=== PATIENT | female | born 1945 | race Caucasian/White ===

== ENCOUNTER 2024-03-10 09:36 | Emergency (ER) | payer MEDICARE, SELFPAY ==
[2024-03-10 09:47] VITALS: BP 134/74
--- NOTE | 2024-03-10 11:23 | ED.GENMED ---
History of Present Illness
General
Chief Complaint: Change in Mental Status
Source: family
Time Seen by Provider: 03/10/24 11:07
History of Present Illness
History of Present Illness:
78-year-old female with past medical history of hypertension, hyperlipidemia and dementia presenting to the ER with family after they were at primary care provider yesterday for evaluation as patient has been seemingly a little bit more confused
than baseline, wandering around [place] where patient and live together. A few days ago the patient had to be found wandering around the facility as she often likes to walk but reportedly got lost. Patient herself has no complaints
at this time. Patient's states that he has noticed a slightly stronger odor of urine over the last week or so. Patient was unable to provide a urinary specimen at the primary care provider yesterday. No other concerns at this time.
Past History
Past History
ED Past Medical History: HTN, Hypercholesterolemia and Other (Dementia)
ED Past Surgical History: None
Social History
Tobacco: Non-smoker
Alcohol: None
Drug: None
Personal:
Living: with family
Review of Systems
Review of Systems
All Other Systems: ROS reviewed and negative except as documented in HPI and ROS
Phy Exam
Physical Exam
Physical Exam:
GENERAL: Alert , in no apparent distress, tearful
Head: Normocephalic atraumatic
EYE: pupils equal and reactive, 3 mm bilateral
NECK: Supple
ENT: o/p clr, mmm.
CARDIAC: Regular rate and rhythm .
LUNGS: Clear breath sounds bilaterally, no acute respiratory distress, no wheezes/rales/rhonchi
ABDOMEN: Soft, without focal tenderness, no r/g, no cvat
NEUROLOGICAL: Alert and oriented to self but not place or time, follows commands appropriately
SKIN: Warm and dry, skin intact.
MUSCULOSKELETAL: well perfused.
PSYCH: Normal and appropriate interaction.
Scores
Heart Failure Risk
Heart Failure Risk Score: Not Applicable
Heart Score for Chest Pain Patients
STEMI patient?: Not applicable
Withdrawal Assessment of Alcohol
Withdrawal Assessment Completed?: Not applicable
Course
Orders/Labs/Results
Orders:
Orders
03/10/24 11:20
Complete Blood Count/With Diff Urgent
Comprehensive Metabolic Panel Urgent
Urinalysis Reflex To Culture Urgent
Date Specimen was Collected: 03/10/24
Time Specimen was Collected: 11:17
03/10/24 11:32
0.9% Sodium Chloride 500 ml [Nss] 500 ml IV BOLUS
03/10/24 11:48
Potassium Chloride 10% Elixir [KCl Elixir] 40 meq PO NOW STA
Abnormal Lab Results
03/10/24
11:20
Absolute Monos (auto) 0.9 H 10^3/uL
(0.1-0.6)
Lymphocytes % 16.9 L %
(20.5-51.1)
Monocytes % 10.9 H %
(1.7-9.3)
Potassium 2.9 L mmol/L
(3.5-5.1)
BUN 18 H mg/dl
(7-17)
Glucose 121 H mg/dl
(70-99)
Total Bilirubin 1.9 H mg/dl
(0.2-1.3)
03/10/24 11:20
03/10/24 11:20
Vital Signs
Initial and Last Documented VS:
Initial Vital Signs
Temp Pulse BP Pulse Ox
99.2 F 94 134/74 98
03/10/24 09:47 03/10/24 09:47 03/10/24 09:47 03/10/24 09:47
Last Documented Vital Signs
Temp Pulse Resp BP Pulse Ox
99.2 F 69 16 129/59 98
03/10/24 09:47 03/10/24 11:24 03/10/24 11:24 03/10/24 11:24 03/10/24 11:24
MDM/Problems Addressed
Differential Diagnosis Includes:
Exacerbation of patient's dementia, infectious source such as UTI, less concern for an electrolyte disturbance
MDM/Problems Addressed:
78-year-old female presenting to the emergency department for evaluation of reported increased confusion over the last week or so. Saw primary care provider yesterday but was unable to get a urinary specimen. Patient appears to be at her relative
baseline today per family. She is hemodynamically stable and in no acute distress. Will check labs and urine. Anticipate discharge home with continued outpatient management.
Chronic conditions affecting care: Neurological disorder (Dementia)
Acute Exacerbation and/or Progression of Chronic Illness: Neurological disorder (Dementia)
*Pulse Oximetry
Patient hypoxic: no
*Ch[employer]rick Interpretation
Rate: normal
Rhythm: sinus
*Critical Care Note
Total Time (30-74mins, 75-104mins- exclusive of procedures): Not Applicable
Patient Management
Escalation/DeEscalation of care consider admission/obs:
Patient's lab workup is unremarkable. She remains hemodynamically stable. Ambulatory with steady gait. Stable for discharge home and patient follow-up with primary care provider
ED Attending Note
-
Portions of this chart may have been created with voice recognition software.� Occasional wrong word or��sound alike� substitutions may have occurred due to the inherent limitations of voice recognition software.
Discharge Plan
Departure
Patient Disposition: Home (Routine Discharge)
Date of Disposition: 03/10/24
Time of Disposition: 12:24
Patient with high blood pressure during this ER visit?: No
Discharge Problem:
Dementia
Instructions: Dementia (DC)
Referrals:
Rey Quezada MD [Family Provider] -
Interventions
Interventions:
*Risk Screen - Suicide Last Done: 03/10/24 11:24
*General Assessment Last Done: 03/10/24 09:54
*Neglect/Abuse Screening Last Done: 03/10/24 11:24
ED- Fall Risk Assessment Last Done: 03/10/24 11:24
*ED COVID-19 Vaccine History Last Done: 03/10/24 09:54
*Nursing Disposition Last Done: 03/10/24 12:47
ED- Pulmonary Assessment Last Done: 03/10/24 12:47
ED-Psychological Assessment Last Done: 03/10/24 12:48
ED- Neurological Assessment Last Done: 03/10/24 11:24
ED- Cardiac Assessment Last Done: 03/10/24 12:47
Discharge Date and Time
Discharge Date/Time: 03/10/24 12:47
Print Language: NAURUAN
[2024-03-10 11:24] VITALS: BP 129/59; BMI 24.9
[2024-03-10] MEDS: NSS 500 IV (11:25)
[2024-03-10 11:37] LABS: % Basophils 0.4 % (0-2); % Eosinophils 2.2 % (0-6); % Immature Granulocytes 0.5 % (0-0.5); % Lymphocytes 16.9 % (20.5-51.1); % Monocytes 10.9 % (1.7-9.3); % Neutrophils 69.1 % (42.2-75.2); Absolute Eosinophils 0.2 10^3/uL (0-0.7); Absolute Lymphocytes 1.4 10^3/uL (1.2-3.4); Absolute Monocytes 0.9 10^3/uL (0.1-0.6); Absolute Neutrophils 5.6 10^3/uL (1.4-6.5); Hematocrit 40.6 % (37.0-47.0); Hemoglobin 14.3 g/dL (12.0-16.0); Mean Corp Hgb Conc. 35.2 g/dL (33.0-37.0); Mean Corpuscular Volume 85.3 fL (81.0-99.0); Mean Platelet Volume 10.2 fL (7.4-10.4); Nucleated Red Blood Cells % 0 %; Platelet Count 266 10^3/uL (130-400); Red Blood Cell Count 4.76 10^6/uL (4.20-5.40); Red Cell Dist. Width 13.1 % (11.5-14.5); White Blood Cell Count 8.1 10^3/uL (4.8-10.8)
[2024-03-10 11:41] LABS: ALT (SGPT) 24 U/L (0-35); AST (SGOT) 33 U/L (14-36); Albumin 4.6 g/dl (3.5-5.0); Alkaline Phosphatase 73 U/L (38-126); Blood Urea Nitrogen 18 mg/dl (7-17); Calcium 9.9 mg/dl (8.4-10.2); Carbon Dioxide 27 mmol/L (22-30); Chloride 99 mmol/L (98-107); Estimated Creatinine Clearance 57 ml/min; Glucose 121 mg/dl (70-99); Potassium 2.9 mmol/L (3.5-5.1); Sodium 136 mmol/L (135-145); Total Bilirubin 1.9 mg/dl (0.2-1.3); Total Protein 7.3 g/dl (6.3-8.2); eGFR > 60.00
[2024-03-10 11:46] LABS: Urine Albumin Negative (Neg - Trace); Urine Bilirubin Negative (Negative); Urine Character Clear (Clear); Urine Color Yellow; Urine Glucose Negative (Negative); Urine Ketone Negative (Negative); Urine Leukocyte Negative (Negative); Urine Nitrite Negative (Negative); Urine Occult Blood Negative (Negative); Urine Urobilinogen Negative (Neg - 1+)
[2024-03-10] MEDS: KCL ELIXIR 40 MEQ PO (12:07)
== END 2024-03-10 12:47 | disposition home or self-care (01) ==
LOC: EMR 09:36
PROVIDERS: Physician Assistant Medical; EMERGENCY PHYSICIAN Student in an Organized Health Care Education/Training Program; FAMILY PHYSICIAN Family Medicine
DX: F03.90 Unspecified dementia, unspecified severity, without behavioral disturbance, psychotic disturbance, mood disturbance, and anxiety (principal); I10 Essential (primary) hypertension; E78.5 Hyperlipidemia, unspecified
CPT/HCPCS: 99284; 96360; 80053; 81003; 85025

== ENCOUNTER → 2024-05-17 13:21 | Outpatient (REF) | payer MEDICARE, SELFPAY | LOC: RAD 13:21 | PROVIDERS: ATTENDING PHYSICIAN Family Medicine | DX: R79.89 Other specified abnormal findings of blood chemistry (principal) | CPT/HCPCS: 76700 ==

== ENCOUNTER 2024-05-18 14:46 | Inpatient (IN) | payer MEDICARE, SELFPAY ==
[2024-05-18] VITALS (8 sets, daily range): BP systolic 110–146; BP diastolic 55–87; BMI 22.4
[2024-05-18 10:38] LABS: Hematocrit 42.3 % (37.0-47.0); Hemoglobin 14.8 g/dL (12.0-16.0); Mean Corpuscular Hgb 30.1 pg (27.0-31.0); Mean Corpuscular Volume 86.2 fL (81.0-99.0); Mean Platelet Volume 11.1 fL (7.4-10.4); Platelet Count 216 10^3/uL (130-400); Red Blood Cell Count 4.91 10^6/uL (4.20-5.40); Red Cell Dist. Width 13.9 % (11.5-14.5); White Blood Cell Count 7.1 10^3/uL (4.8-10.8)
[2024-05-18 10:43] LABS: INR 1.17; PT 14.8 Sec (11.4-14.6)
[2024-05-18 10:44] LABS: APTT 31.9 Sec (23.4-35.0)
[2024-05-18 10:48] LABS: ALT (SGPT) 145 U/L (0-35); AST (SGOT) 230 U/L (14-36); Albumin 4.6 g/dl (3.5-5.0); Alkaline Phosphatase 541 U/L (38-126); Blood Urea Nitrogen 30 mg/dl (7-17); Calcium 10.1 mg/dl (8.4-10.2); Carbon Dioxide 21 mmol/L (22-30); Chloride 97 mmol/L (98-107); Glucose 101 mg/dl (70-99); Lipase 379 U/L (23-300); Potassium 3.7 mmol/L (3.5-5.1); Sodium 140 mmol/L (135-145); Total Bilirubin 5.1 mg/dl (0.2-1.3); Total Protein 8.2 g/dl (6.3-8.2); eGFR 42.35
[2024-05-18 10:56] LABS: Absolute Neutrophils -Man Diff 4.7 10^3/uL (1.4-6.5); Band Neutrophils 0 % (0-3); Eosinophils 3 % (0-6); Lymphocytes 11 % (20-51); Monocytes 19 % (2-9); Platelets Checked Yes; Segmented Neutrophils 67 % (42-75)
[2024-05-18 10:57] LABS: Normal RBC Morphology Yes; Total Cells Counted 100
--- NOTE | 2024-05-18 12:03 | ED.GENMED ---
History of Present Illness
General
Chief Complaint: Abnormal Lab Value
Source: patient
Exam Limitations: none
Time Seen by Provider: 05/18/24 09:46
Nursing documentation reviewed up to this point in time: agreed with
History of Present Illness
History of Present Illness:
78 Y/O f WITH H/O HTN, HLD, dementia
here after abnormal US from [facility] ordered by PCP after routine labs showed tranaminitis and hyyperbilirubinemia
pt ahs dementia an dis poor history
and daughter say that she has had some dec in appetite and energy the past few months
she has not had any significant changes to her mental status
they did not appreciate her to be jaundice
denies fever/chills, vomiting, abdominal pain, diarrhea, black stool, cp, sob
had outpatient US showing concerns for pancreatic mass causing intrahepatic ductal dilitation
sent here for w/u
Past History
Past History
ED Past Medical History: HTN, Hypercholesterolemia and Other (Dementia)
ED Past Surgical History: None
Social History
Tobacco: Non-smoker
Alcohol: None
Drug: None
Personal:
Living: with family
Review of Systems
Review of Systems
Allergies reviewed?: Yes
All Other Systems: Not applicable
Phy Exam
Physical Exam
Physical Exam:
GENERAL: Alert , in no apparent distress
EYE: pupils equal and reactive , icteric sclera
NECK: Supple
ENT: o/p clr, mmm.
CARDIAC: Regular rate and rhythm .
LUNGS: Clear breath sounds bilaterally, no acute respiratory distress, no wheezes/rales/rhonchi
ABDOMEN: Soft, without focal tenderness, no r/g, no cvat, normal bowel sounds
NEUROLOGICAL: Alert and oriented x 1 detail, some dementia no focal neuro deficits
SKIN: Warm and dry, skin intact.
MUSCULOSKELETAL: No edema, well perfused. neg dustin's sign
PSYCH: Normal and appropriate interaction.
Course
Orders/Labs/Results
Orders:
Orders
05/18/24 Breakfast
Cholesterol Lowering
At Your Request: Non-Participating
Does patient need a safe tray?: No
Cholesterol Lowering: Sodium, 2 Gram
05/18/24 10:11
Complete Blood Count/With Diff Urgent
Comprehensive Metabolic Panel Urgent
Lipase Urgent
Manual Differential Urgent
PTT Urgent
Prothrombin Time Urgent
05/18/24 14:19
Admit/Transfer Patient As Directed
Co-Sign Provider:
Level of Care: Inpatient admission
Assign to:: Medical/Surgical
Physician / Group: emmie
Diagnosis: pancreatic mass
Reason for Hospitalization: pancratic mass
Expected length of stay greater than two midnights?: Yes
ELOS- Estimated Length of Stay in days: 3
I certify the patient meets the requirements for IP care: Yes
PRN Pain Medication Management As Directed
May give lesser potent ordered pain med per pt: Yes
preference::
Protocol:: Medication orders for pain may be administered in a
manner that supports deferring to patient preference
when the pt is:
- Requesting an ordered lesser potent pain medication.
Least to most potent pain medications are defined
as: acetaminophen < NSAID < tramadol < opioids
(morphine, oxycodone, hydromorphone).
- Requesting a lesser dose of the same medication IF
ORDERED.
- Requesting a less intrusive route of administration
if both routes are prescribed by the provider (PO <
IV).
05/18/24 14:21
Code Status As Directed
Resuscitation Status: Full Code
05/18/24 16:27
0.9% Sodium Chloride 1000 ml [Nss] 1,000 ml IV 80 mls/hr
Bisacodyl [Dulcolax] 10 mg RECTAL [id number] PRN
Docusate W/Senna [Senokot-S] 1 tablet PO BIDPRN PRN
Lorazepam [Ativan] 0.5 mg PO HSPRN PRN
Polyethylene Glycol Powder [Miralax] 17 grams PO DAILYPRN PRN
05/18/24 16:27
GASTROINTESTINAL CONSULT Routine
Consulting Provider: Aron Ramon
Was physician already notified: Yes
Activity As Directed
Activity Level: As Tolerated
Vital Signs As Directed
Frequency: Per unit guidelines
DX Deep Vein Thrombosis Video Routine
05/18/24 20:00
Heparin 5,000 units SC Q12
Memantine HCl [Namenda] 10 mg PO BID
05/18/24 22:00
Sertraline HCl [Zoloft] 100 mg PO HS
Sertraline HCl [Zoloft] 50 mg PO HS
05/19/24 06:24
Complete Blood Count/No Diff IN AM
Comprehensive Metabolic Panel IN AM
Lipase IN AM
05/19/24 08:00
Donepezil HCl [Aricept] 10 mg PO DAILY
05/20/24 06:00
Comprehensive Metabolic Panel IN AM
05/21/24 06:00
Comprehensive Metabolic Panel IN AM
05/22/24 06:00
Comprehensive Metabolic Panel IN AM
05/23/24 06:00
Comprehensive Metabolic Panel IN AM
Abnormal Lab Results
05/18/24
10:11
MPV 11.1 H fL
(7.4-10.4)
Lymphocytes (Manual) 11 L %
(20-51)
Monocytes (Manual) 19 H %
(2-9)
PT 14.8 H Sec
(11.4-14.6)
Chloride 97 L mmol/L
(98-107)
Carbon Dioxide 21 L mmol/L
(22-30)
BUN 30 H mg/dl
(7-17)
Creatinine 1.3 H mg/dL
(0.6-1.0)
Glucose 101 H mg/dl
(70-99)
Total Bilirubin 5.1 H mg/dl
(0.2-1.3)
AST 230 H U/L
(14-36)
ALT 145 H U/L
(0-35)
Alkaline Phosphatase 541 H U/L
(38-126)
Lipase 379 H U/L
(23-300)
05/18/24 10:11
05/18/24 10:11
Vital Signs
Initial and Last Documented VS:
Initial Vital Signs
Temp Pulse Resp BP Pulse Ox
98.9 F 71 18 110/66 98
05/18/24 09:25 05/18/24 09:25 05/18/24 09:25 05/18/24 09:25 05/18/24 09:25
Last Documented Vital Signs
Temp Pulse Resp BP Pulse Ox
98.3 F 65 16 159/88 98
05/19/24 15:00 05/19/24 15:00 05/19/24 15:00 05/19/24 15:00 05/19/24 15:00
MDM/Problems Addressed
Differential Diagnosis Includes:
pancreatic mass, biliary obstruction, choledocholithaisis
MDM/Problems Addressed:
78 y/o F htn hld dementia
outpatient labs last week with t bili 4, elev lfts, had outpatient US yesterday and sent in
looks to have pancreatic mass causing obstruction, intra/extra hepatic ductal dilitation; tbili 5 today
no vomiting
at her baseline mental status
d/w GI who will see;
*Critical Care Note
Total Time (30-74mins, 75-104mins- exclusive of procedures): Not Applicable
ED Attending Note
-
Portions of this chart may have been created with voice recognition software.� Occasional wrong word or��sound alike� substitutions may have occurred due to the inherent limitations of voice recognition software.
Discharge Plan
Departure
Patient Disposition: Admit
Date of Disposition: 05/18/24
Time of Disposition: 13:10
Admit to: Med/Surg
Presentation/result/management discussed w/ accepting MD/DO: Hospitalist
Patient with high blood pressure during this ER visit?: No
Condition: Fair
Covid-19: Not Applicable
Discharge Problem:
Pancreatic mass, Bile duct obstruction, intrahepatic, Hyperbilirubinemia
Interventions
Interventions:
*Risk Screen - Suicide Last Done: 05/18/24 09:23
*General Assessment Last Done: 05/18/24 09:23
*Neglect/Abuse Screening Last Done: 05/18/24 09:23
ED- Fall Risk Assessment Last Done: 05/18/24 15:07
*ED COVID-19 Vaccine History Last Done: 05/18/24 09:49
*Nursing Disposition Last Done: 05/18/24 15:07
Discharge Date and Time
Discharge Date/Time: 05/18/24 16:22
--- NOTE | 2024-05-18 14:00 | HPS.HSE ---
Family Physician
-
Family Physician: Rey Quezada
Chief Complaint
-
abnormal labs
History of Present Illness
8 Y/O f WITH H/O HTN, HLD, dementia here after abnormal US from yesterday ordered by PCP after routine labs showed transaminitis and hyperbilirubinemia. patient denied any abdominal pain, n,v,d. family stated decreased appetite. patient denied DAVILA,
dizzy or syncopal episode. denied fever, chills, runny nose, congestion, cough. denied chest pain, sob. denied dysuria or hematuria.
had outpatient US showing concerns for pancreatic mass causing intrahepatic ductal dilitation
upon arrival she was noted to have elevated transaminase. Ct with Intrahepatic and extrahepatic biliary tract dilatation extending to the region of the head of the pancreas. Suspected soft tissue tissue lesion measuring at least 1.2-1.3 cm in the
region of the head of the pancreas at least suspicious for either pancreatic head mass or lesion at the ampulla of Vater. Malignancy is the diagnosis of exclusion. MRI may be helpful for more complete evaluation. Also consider endoscopic
ultrasound.Subcentimeter low-attenuation right lobe hepatic lesion too small to characterize.Sigmoid diverticulosis.Suspected calcified degenerated leiomyomatous changes of the uterus.
admitting for further management.
Medical History
Past Medical History
Past Medical History: Reports Other
Additional Past Medical History:
HTN
HLD
dementia
anxiety
Past Surgical History: Reports None
Social History
Tobacco: Non-smoker
Alcohol: None
Drug: None
Personal:
Living: With Family
Family History
Family History: Not pertinent
Allergies / Home Medications
Allergies reflects when Allergies were last updated in [email or web address].
Home Medications with original date entered in [email or web address]
Allergy/Medication List:
Allergies
Allergy/AdvReac Type Severity Reaction Status Date / Time
NKA - No Known Allergies Allergy Unknown Uncoded 09/20/24 09:22
Home Medications
atorvastatin 20 mg tablet 20 mg PO DAILY 05/18/24
calcium carbonate 500 mg PO DAILY 05/18/24
donepezil 10 mg tablet 10 mg PO DAILY 05/18/24
losartan 100 mg tablet 100 mg PO HS 05/18/24
memantine 10 mg tablet 10 mg PO BID 05/18/24
sertraline 100 mg tablet 100 mg PO HS 05/18/24
sertraline 50 mg tablet 50 mg PO HS 05/18/24
therapeutic multivitamin 1 tab PO DAILY 05/18/24
Review of Systems
-
Constitutional: Reports No Symptoms
EENT: Reports No Symptoms
Respiratory: Reports No Symptoms
Cardiac: Reports No Symptoms
Abdomen/GI: Reports No Symptoms
: Reports No Symptoms
Musculoskeletal: Reports No Symptoms
Skin: Reports No Symptoms
Neurological: Reports No Symptoms
Endocrine: Reports No Symptoms
Hematologic/Lymphatic: Reports No Symptoms
Psych: Reports No Symptoms
Physical Exam
Vital Signs
Vital Signs
Temp Pulse Resp BP Pulse Ox
98.9 F 71 16 140/71 96
05/18/24 09:25 05/18/24 09:25 05/18/24 12:13 05/18/24 13:14 05/18/24 13:15
Physical Exam
General: Well Developed, Well Nourished and No Apparent Distress
HEENT: NormoCephalic, Moist mucous membranes and Atraumatic
Respiratory: Clear
Cardiac: S1/S2 and Regular Rhythm; No Murmur or Rub
GI: Soft, Non Tender, Non Distended and Normal Bowel Sounds; No Organomegaly
Rectal: Deferred by Provider
Musculoskeletal: No Clubbing, No Cyanosis and No Edema
Skin: Rash and Jaundice
Neuro: Nonfocal/grossly intact
Psych: Confused and Apparent Dementia
Laboratory Results
-
05/18/24 10:11
05/18/24 10:11
Laboratory Results
PT 14.8 Sec (11.4-14.6) H 05/18/24 10:11
INR 1.17 05/18/24 10:11
APTT 31.9 Sec (23.4-35.0) 05/18/24 10:11
Total Bilirubin 5.1 mg/dl (0.2-1.3) H 05/18/24 10:11
AST 230 U/L (14-36) H 05/18/24 10:11
ALT 145 U/L (0-35) H 05/18/24 10:11
Alkaline Phosphatase 541 U/L (38-126) H 05/18/24 10:11
Lipase 379 U/L (23-300) H 05/18/24 10:11
Data Reviewed
-
CT Scan: Report Reviewed by me
Ultrasound: Report Reviewed by me
Lab Data: Labs Reviewed by me
Impression/Plan
-
#pancreatic mass causing obstruction/intra/extra hepatic ductal dilitation
-T bili 5,ast 230,alt 145.alk 541,lipase 379
-abdomen pelvis CT with intrahepatic and extrahepatic biliary tract dilatation extending to the region of the head of the pancreas. Suspected soft tissue tissue lesion measuring at least 1.2-1.3 cm in the region of the head of the pancreas at least
suspicious for either pancreatic head mass or lesion at the ampulla of Vater. Malignancy is the diagnosis of exclusion. MRI may be helpful for more complete evaluation. Also consider endoscopic ultrasound. Subcentimeter low-attenuation right lobe
hepatic lesion too small to characterize.Sigmoid diverticulosis.Suspected calcified degenerated leiomyomatous changes of the uterus.
-US with intrahepatic and extrahepatic biliary ductal dilatation, along with gallbladder distention, likely secondary to a suboptimally visualized pancreatic mass measuring up to 1.7 cm. Further evaluation with contrast-enhanced CT of the
abdomen/pelvis is recommended.
-GI consulted
#acute kidney injury likely dehydration
-cr 1.3
-normal saline x1 bag
-BMP in am
#HLd
-hold statin due to elevated transaminase
#essential HTn
-Bp stble
-hold losartan due to CECILIA
#dementia/depression
-donepezil, memantine,sertraline continued
-lorazepam prn for sleep
#DVT prophylaxis
-heparin sq
#CODE status
-full code
--- NOTE | 2024-05-18 14:34 | W.PN.UPDATE ---
Update Note
Progress Note Update
This is an addendum to the H&P written by Bryanna Stevens on 05/18/2024. Patient seen and examined independently with SCANNER OPERATOR.
78-year-old female past medical history of hypertension, hyperlipidemia, dementia sent in after routine labs showed transaminitis/hyperbilirubinemia. Abdominal ultrasound yesterday showed intrahepatic/extrahepatic biliary ductal dilatation
secondary to pancreatic mass.
CT scan today showed intrahepatic/extrapelvic biliary ductal dilatation, pancreatic head mass concerning for pancreatic malignancy.
Labs show mild CECILIA likely prerenal.
IV fluids. GI consulted for endoscopic ultrasound-guided biopsy.
--- NOTE | 2024-05-18 15:19 | CON.GI ---
Consultation
-
Date/Time Consultation Performed: 05/18/24
Performing Provider: Sybil Ramon MD
Reason for Consultation: elevated LFT
Medical History
Chief Complaint / HPI
Chief Complaint: abnormal US/LFT
History of Present Illness:
The patient is a 78-year-old female with past medical history as noted who presents to the emergency room with abnormal ultrasound and labs. She had been noted to have increased LFTs and had ultrasound done that showed intrahepatic and extrahepatic
biliary duct dilation and gallbladder distention up to 1.7 cm. In the emergency room CT scan with IV contrast showed duct dilation again extending to the region of the head of the pancreas with suspected soft tissue lesion measuring 1.2 x 1.3 near
the head of the pancreas. Overall she denies any abdominal pain, and confirmed with the family. She has had some decreased appetite recently though no unexpected weight loss. The patient's states that her urine has been darker
intermittently over the past couple of weeks. She denies any fever, chills.
Past Medical History
Past Medical History: Other (HTN HLD dementia anxiety)
Past Surgical History: None
Social History
Tobacco: Non-Smoker
Alcohol: None
Family History
Family History: Reviewed & Not Pertinent
Allergies / Home Medications
Allergy/AdvReac Type Severity Reaction Status Date / Time
NKA - No Known Allergies Allergy Unknown Uncoded 05/18/24 09:22
�Medication �Instructions �Recorded
atorvastatin 20 mg tablet 20 mg PO DAILY 05/18/24
calcium carbonate 500 mg PO DAILY 05/18/24
donepezil 10 mg tablet 10 mg PO DAILY 05/18/24
lorazepam 0.5 mg tablet 0.5 mg PO HS PRN sleep 05/18/24
losartan 100 mg tablet 100 mg PO HS 05/18/24
memantine 10 mg tablet 10 mg PO BID 05/18/24
sertraline 100 mg tablet 100 mg PO HS 05/18/24
sertraline 50 mg tablet 50 mg PO HS 05/18/24
therapeutic multivitamin 1 tab PO DAILY 05/18/24
Review of Systems
-
All other systems: A 12 pt ROS was Negative except as stated above in HPI
Vital Signs
Temp Pulse Resp BP Pulse Ox
98.9 F 61 16 115/87 99
05/18/24 09:25 05/18/24 14:36 05/18/24 12:13 05/18/24 14:33 05/18/24 14:00
Physical Exam
Exam
General: NAD, alert and oriented x 1, jaundice
HEENT: MMM, anicteric, no lymphadenopathy, icteric
Heart: Regular, no murmurs
Lungs: CTA bilaterally
Abdomen: normal bowel sounds, soft, no tenderness, no rebound or guarding, no masses, bruits or ascites
Extremeties: no edema
Skin: no rashes
Results
WBC 7.1 10^3/uL (4.8-10.8) 05/18/24 10:11
Hgb 14.8 g/dL (12.0-16.0) 05/18/24 10:11
Hct 42.3 % (37.0-47.0) 05/18/24 10:11
MCV 86.2 fL (81.0-99.0) 05/18/24 10:11
Plt Count 216 10^3/uL (130-400) 05/18/24 10:11
PT 14.8 Sec (11.4-14.6) H 05/18/24 10:11
INR 1.17 05/18/24 10:11
APTT 31.9 Sec (23.4-35.0) 05/18/24 10:11
Sodium 140 mmol/L (135-145) 05/18/24 10:11
Potassium 3.7 mmol/L (3.5-5.1) 05/18/24 10:11
Chloride 97 mmol/L (98-107) L 05/18/24 10:11
Carbon Dioxide 21 mmol/L (22-30) L 05/18/24 10:11
BUN 30 mg/dl (7-17) H 05/18/24 10:11
Creatinine 1.3 mg/dL (0.6-1.0) H 05/18/24 10:11
Calcium 10.1 mg/dl (8.4-10.2) 05/18/24 10:11
Total Bilirubin 5.1 mg/dl (0.2-1.3) H 05/18/24 10:11
AST 230 U/L (14-36) H 05/18/24 10:11
ALT 145 U/L (0-35) H 05/18/24 10:11
Alkaline Phosphatase 541 U/L (38-126) H 05/18/24 10:11
Lipase 379 U/L (23-300) H 05/18/24 10:11
Diagnostic Image Results:
CT with IV contrast:
IMPRESSION:
Intrahepatic and extrahepatic biliary tract dilatation extending to the region of the head of the pancreas. Suspected soft tissue tissue lesion measuring at least 1.2-1.3 cm in the region of the head of the pancreas at least suspicious for either
pancreatic head mass or lesion at the ampulla of Vater. Malignancy is the diagnosis of exclusion. MRI may be helpful for more complete evaluation. Also consider endoscopic ultrasound.
Subcentimeter low-attenuation right lobe hepatic lesion too small to characterize.
Sigmoid diverticulosis.
Suspected calcified degenerated leiomyomatous changes of the uterus.
Prior GI Procedures:
EGD:
Colonoscopy:
Assessment / Plan
-
1. 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 I discussed at length with the patient's and son, will plan MRI over the
, and EUS/ERCP early next week, hopefully Tuesday.
-
-
Thank you for consultation and allowing me to participate in the patient's care. Please call the direct service professional GI physician during the after hours with any questions or concerns.
[2024-05-18] MEDS: NSS 1000 IV (17:09)
[2024-05-18] MEDS: NAMENDA 10 MG PO (20:54)
[2024-05-18] MEDS: HEPARIN 5000 UNITS SC (20:54)
[2024-05-18] MEDS: ATIVAN 0.5 MG PO (20:54)
[2024-05-18] MEDS: ZOLOFT 50 MG PO (21:00)
[2024-05-18] MEDS: ZOLOFT 100 MG PO (21:00)
[2024-05-19 07:00] VITALS: BP 126/64
[2024-05-19 07:05] LABS: Hemoglobin 13.8 g/dL (12.0-16.0); Mean Corp Hgb Conc. 34.5 g/dL (33.0-37.0); Mean Corpuscular Hgb 28.8 pg (27.0-31.0); Mean Corpuscular Volume 83.3 fL (81.0-99.0); Mean Platelet Volume 10.9 fL (7.4-10.4); Platelet Count 223 10^3/uL (130-400); Red Cell Dist. Width 13.8 % (11.5-14.5); White Blood Cell Count 7.3 10^3/uL (4.8-10.8)
[2024-05-19 07:12] LABS: INR 1.13; PT 14.3 Sec (11.4-14.6)
[2024-05-19 07:25] LABS: ALT (SGPT) 120 U/L (0-35); AST (SGOT) 209 U/L (14-36); Albumin 4.1 g/dl (3.5-5.0); Alkaline Phosphatase 542 U/L (38-126); Blood Urea Nitrogen 25 mg/dl (7-17); Calcium 9.6 mg/dl (8.4-10.2); Carbon Dioxide 24 mmol/L (22-30); Chloride 99 mmol/L (98-107); Estimated Creatinine Clearance 42 ml/min; Glucose 87 mg/dl (70-99); Lipase 399 U/L (23-300); Potassium 3.5 mmol/L (3.5-5.1); Sodium 141 mmol/L (135-145); Total Protein 7.6 g/dl (6.3-8.2); eGFR 51.75
--- NOTE | 2024-05-19 09:02 | W.PN.GI.CBS2 ---
Today's Communication / Plan
-
Please see assessment and plan for details.
Assessment / Plan
-
1. 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 I discussed at length with the patient's and son yesterday, will plan MRI
hopefully today, and EUS/ERCP early next week, hopefully Tuesday.
Subjective
Subjective
Date of Service: May 19, 2024
Patient feeling well, no complaints overnight, denies abdominal pain, nausea or vomiting.
Objective
Data Reviewed
Laboratory Data:
Laboratory Results
05/19/24 06:24
05/19/24 06:24
Laboratory Results
PT 14.3 Sec (11.4-14.6) 05/19/24 06:24
INR 1.13 05/19/24 06:24
APTT 31.9 Sec (23.4-35.0) 05/18/24 10:11
Total Bilirubin 5.0 mg/dl (0.2-1.3) H 05/19/24 06:24
AST 209 U/L (14-36) H 05/19/24 06:24
ALT 120 U/L (0-35) H 05/19/24 06:24
Alkaline Phosphatase 542 U/L (38-126) H 05/19/24 06:24
Lipase 399 U/L (23-300) H 05/19/24 06:24
Vital Signs and I&O:
Vital Signs
Temp Pulse Resp BP Pulse Ox
97.9 F 70 16 126/64 97
05/19/24 07:00 05/19/24 07:00 05/19/24 07:00 05/19/24 07:00 05/19/24 07:00
I&O
05/18/24 05/19/24 05/20/24
06:59 06:59 06:59
Intake Total 480 / 480
Balance 480 / 480
Physical Exam
Physical Exam
General: NAD
Abdomen: normal bowel sounds, soft, no tenderness, no masses or bruits, no ascites
[2024-05-19] MEDS: NAMENDA 10 MG PO ×2 (09:12→21:53)
[2024-05-19] MEDS: HEPARIN 5000 UNITS SC ×2 (09:12→21:53)
[2024-05-19] MEDS: ARICEPT 10 MG PO (09:12)
[2024-05-19] MEDS: NSS 1000 IV (11:37)
[2024-05-19] MEDS: KCL 40 MEQ PO (11:37)
--- NOTE | 2024-05-19 11:41 | W.PN.HOSP.TC ---
Today's Communication/Plan
-
resume diet
Trend LFTs
IVF
oral KCL
Assessment / Plan
Assessment / Plan
Gen-awake, alert, NAD
HEENT-NC, AT, anicteric, clear oral mm
Neck-supple
CV-reg, no M, +S1/S2
Lungs-clear B/L
Abd-soft, NT, ND
Ext-no edema
Musculoskeletal-no cyanosis, clubbing
Skin-warm and dry
Neuro-grossly non-focal
Psych-calm, cooperative
CECILIA - due to volume depletion, anorexia. Improving with IVF.
Obstructive jaundice -suspect due to pancreatic mass. MRI completed, report pending. Elevated LFTs noted. Mild lipase elevation noted but clinically does not have acute pancreatitis.
Pancreatic mass -concerning for primary pancreatic carcinoma. Follow-up MRI. Await ERCP/EUS on Tuesday. Discussed with GI service. Painless jaundice concerning along with 30 pound weight loss according to family. She does have anorexia over the
past 2 weeks.
Essential HTN - stable.
Hyperlipidemia - on Lipitor, hold for now given elevated LFTs.
Dementia - unknown type. Continue Aricept, Memantine.
Full code
Family updated at the bedside.
Anticipated Discharge: > 48 hours
Subjective/Interval History
-
Date of Service: May 19, 2024
Patient seen/examined, tearful about being hospitalized. Denies abdominal pain, N/V. Family at bedside.
Objective Data
-
Labs:
Laboratory Results
05/19/24
06:24
WBC 7.3
Hgb 13.8
Hct 40.0
Plt Count 223
PT 14.3
INR 1.13
Sodium 141
Potassium 3.5
Chloride 99
Carbon Dioxide 24
BUN 25 H
Creatinine 1.1 H
Glucose 87
Calcium 9.6
Total Bilirubin 5.0 H
AST 209 H
ALT 120 H
Alkaline Phosphatase 542 H
Vital Signs:
Vital Signs
Temp Pulse Resp BP Pulse Ox
97.9 F 70 16 126/64 97
05/19/24 07:00 05/19/24 07:00 05/19/24 07:00 05/19/24 07:00 05/19/24 07:00
I&O
05/18/24 05/19/24 05/20/24
06:59 06:59 06:59
Intake Total 480 / 480
Balance 480 / 480
Review of Systems
-
History Source: Patient
All other systems: Reviewed and negative
[2024-05-19 12:25] LABS: Direct Bilirubin 3.5 mg/dl (0.0-0.4)
[2024-05-19 15:00] VITALS: BP 159/88
--- NOTE | 2024-05-19 19:38 | CM ---
met with patient and spouse/poa neil at bedside.patient lives with in an apt with an elevator.patient amb I and needs A with adl.patient has never had a vn or hx of an ip rehab stay.
PCP:dr khari condon Pharmacy:[facility]
PMH:dementia,htn,hld,
patient is adm with a pancreatic mass with 30 lb wt loss and anorexia.mri,ivf,orall k,await ercp/eus tuesday.await pt/ot.Plan: home with no needs vs vn.
[2024-05-19] MEDS: ZOLOFT 50 MG PO (21:53)
[2024-05-19] MEDS: ZOLOFT 100 MG PO (21:53)
[2024-05-19] MEDS: ATIVAN 0.5 MG PO (21:53)
[2024-05-19 23:19] VITALS: BP 153/77
[2024-05-20 07:00] VITALS: BP 158/85
[2024-05-20] MEDS: NAMENDA 10 MG PO ×2 (08:32→19:28)
[2024-05-20] MEDS: HEPARIN 5000 UNITS SC ×2 (08:32→19:28)
[2024-05-20] MEDS: ARICEPT 10 MG PO (08:32)
[2024-05-20 09:11] LABS: ALT (SGPT) 146 U/L (0-35); AST (SGOT) 219 U/L (14-36); Albumin 4.1 g/dl (3.5-5.0); Alkaline Phosphatase 554 U/L (38-126); Blood Urea Nitrogen 16 mg/dl (7-17); Carbon Dioxide 24 mmol/L (22-30); Chloride 104 mmol/L (98-107); Estimated Creatinine Clearance 51 ml/min; Glucose 88 mg/dl (70-99); Potassium 4.7 mmol/L (3.5-5.1); Sodium 141 mmol/L (135-145); Total Bilirubin 5.4 mg/dl (0.2-1.3); Total Protein 7.5 g/dl (6.3-8.2); eGFR > 60.00
--- NOTE | 2024-05-20 09:35 | W.PN.GI.CBS2 ---
Today's Communication / Plan
-
Please see assessment and plan for details.
Assessment / Plan
-
1. 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 MRI again shows probable periampullary mass, no signs of distant metastasis though
possible lymphadenopathy. Will plan hopeful EUS/ERCP tomorrow. I discussed with patient's daughter at length.
Subjective
Subjective
Date of Service: May 20, 2024
Patient feeling okay, no abdominal pain, nausea or vomiting, tolerating diet. No new issues per patient's daughter.
Objective
Data Reviewed
Laboratory Data:
Laboratory Results
05/19/24 06:24
05/20/24 06:51
Laboratory Results
PT 14.3 Sec (11.4-14.6) 05/19/24 06:24
INR 1.13 05/19/24 06:24
APTT 31.9 Sec (23.4-35.0) 05/18/24 10:11
Total Bilirubin 5.4 mg/dl (0.2-1.3) H 05/20/24 06:51
AST 219 U/L (14-36) H 05/20/24 06:51
ALT 146 U/L (0-35) H 05/20/24 06:51
Alkaline Phosphatase 554 U/L (38-126) H 05/20/24 06:51
Lipase 399 U/L (23-300) H 05/19/24 06:24
Vital Signs and I&O:
Vital Signs
Temp Pulse Resp BP Pulse Ox
98.3 F 67 18 158/85 98
05/20/24 07:00 05/20/24 07:00 05/20/24 07:00 05/20/24 07:00 05/20/24 07:00
I&O
05/19/24 05/20/24 05/21/24
06:59 06:59 06:59
Intake Total 480 / 480 1480 / 1480
Balance 480 / 480 1480 / 1480
Physical Exam
Physical Exam
General: NAD, jaundice
Abdomen: normal bowel sounds, soft, no tenderness, no masses or bruits, no ascites
--- NOTE | 2024-05-20 11:16 | W.PN.HOSP.TC ---
Today's Communication/Plan
-
N.p.o. after midnight
Assessment / Plan
Assessment / Plan
Gen-awake, alert, NAD
HEENT-NC, AT, anicteric, clear oral mm
Neck-supple
CV-reg, no M, +S1/S2
Lungs-clear B/L
Abd-soft, NT, ND
Ext-no edema
Musculoskeletal-no cyanosis, clubbing
Skin-warm and dry
Neuro-grossly non-focal
Psych-calm, cooperative
CECILIA - due to volume depletion, anorexia. Improving with IVF.
Obstructive jaundice -suspect due to pancreatic mass. Abdominal MRI shows distention of the gallbladder, diffuse intra and extrahepatic bile duct dilation, suspected pancreatic head mass.
Elevated LFTs noted. Mild lipase elevation noted but clinically does not have acute pancreatitis.
Pancreatic mass -concerning for primary pancreatic carcinoma. Await ERCP/EUS on Tuesday. Discussed with GI service. Painless jaundice concerning along with 30 pound weight loss according to family. She does have anorexia over the past 2 weeks.
Essential HTN - stable.
Hyperlipidemia - on Lipitor, hold for now given elevated LFTs.
Dementia - unknown type. Continue Aricept, Memantine.
Full code
Anticipated Discharge: > 48 hours
Subjective/Interval History
-
Date of Service: May 20, 2024
Patient seen and examined. No complaints.
Objective Data
-
Labs:
Laboratory Results
05/20/24
06:51
Sodium 141
Potassium 4.7 D
Chloride 104
Carbon Dioxide 24
BUN 16
Creatinine 0.9
Glucose 88
Calcium 10.0
Total Bilirubin 5.4 H
AST 219 H
ALT 146 H
Alkaline Phosphatase 554 H
Vital Signs:
Vital Signs
Temp Pulse Resp BP Pulse Ox
98.3 F 67 18 158/85 98
05/20/24 07:00 05/20/24 07:00 05/20/24 07:00 05/20/24 07:00 05/20/24 07:00
I&O
05/19/24 05/20/24 05/21/24
06:59 06:59 06:59
Intake Total 480 / 480 1480 / 1480
Balance 480 / 480 1480 / 1480
Review of Systems
-
History Source: Patient
All other systems: Reviewed and negative
[2024-05-20 15:00] VITALS: BP 148/78
[2024-05-20] MEDS: ATIVAN 0.5 MG PO (21:04)
[2024-05-20] MEDS: ZOLOFT 100 MG PO (21:04)
[2024-05-20] MEDS: ZOLOFT 50 MG PO (21:04)
[2024-05-20 22:44] VITALS: BP 149/80
[2024-05-21 07:00] VITALS: BP 152/83
[2024-05-21] MEDS: HEPARIN 5000 UNITS SC ×2 (08:09→20:46)
[2024-05-21] MEDS: NAMENDA 10 MG PO ×2 (08:09→20:46)
[2024-05-21] MEDS: ARICEPT 10 MG PO (08:09)
[2024-05-21 08:28] LABS: ALT (SGPT) 187 U/L (0-35); AST (SGOT) 297 U/L (14-36); Albumin 4.2 g/dl (3.5-5.0); Alkaline Phosphatase 571 U/L (38-126); Blood Urea Nitrogen 13 mg/dl (7-17); Carbon Dioxide 18 mmol/L (22-30); Chloride 103 mmol/L (98-107); Estimated Creatinine Clearance 51 ml/min; Glucose 97 mg/dl (70-99); Potassium 4.3 mmol/L (3.5-5.1); Sodium 140 mmol/L (135-145); Total Bilirubin 6.2 mg/dl (0.2-1.3); Total Protein 7.6 g/dl (6.3-8.2); eGFR > 60.00
--- NOTE | 2024-05-21 11:08 | W.PN.GI.CBS2 ---
Today's Communication / Plan
-
Please see assessment and plan for details.
Assessment / Plan
-
1. 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 MRI again shows probable periampullary mass, no signs of distant metastasis though
possible lymphadenopathy. Unfortunately logistically not able to do today, will do EUS/ERCP tomorrow. I discussed with the patient and family at length.
Subjective
Subjective
Date of Service: May 21, 2024
Patient feeling okay, no events overnight.
Objective
Data Reviewed
Laboratory Data:
Laboratory Results
05/19/24 06:24
05/21/24 06:11
Laboratory Results
PT 14.3 Sec (11.4-14.6) 05/19/24 06:24
INR 1.13 05/19/24 06:24
APTT 31.9 Sec (23.4-35.0) 05/18/24 10:11
Total Bilirubin 6.2 mg/dl (0.2-1.3) H 05/21/24 06:11
AST 297 U/L (14-36) H 05/21/24 06:11
ALT 187 U/L (0-35) H 05/21/24 06:11
Alkaline Phosphatase 571 U/L (38-126) H 05/21/24 06:11
Lipase 399 U/L (23-300) H 05/19/24 06:24
Vital Signs and I&O:
Vital Signs
Temp Pulse Resp BP Pulse Ox
98.1 F 71 16 152/83 97
05/21/24 07:00 05/21/24 07:00 05/21/24 07:00 05/21/24 07:00 05/21/24 07:00
I&O
05/20/24 05/21/24 05/22/24
06:59 06:59 06:59
Intake Total 1480 / 1480 480 / 480
Balance 1480 / 1480 480 / 480
Physical Exam
Physical Exam
General: NAD, jaundice
Abdomen: normal bowel sounds, soft, no tenderness, no masses or bruits, no ascites
--- NOTE | 2024-05-21 13:41 | CM ---
Reviewed chart, will review therapy notes, prior to patient returning home to determine if she needs therapy prior to returning to her apartment at [facility]. Will make referral to [facility] just in case.
Plan: Case management will continue to follow and assist with discharge planning. Home vrs. SNF
--- NOTE | 2024-05-21 15:46 | W.PN.HOSP.TC ---
Addendum entered and electronically signed by Arias De Leon MD 05/21/24 17:20:
Seen and examined. No acute overnight events
Planned for ERCP with EUS with Bx.
Daughter and at bedside
Had a discussion with them in terms of performance status tolerating chemo. If she does not have a good performance status then she may not be a candidate for chemo as this would be causing more harm then benefit
Verablized understanding
They understand the risk of pancreatitis from ERCP and undergoing sedation.
NAD, resting comfortably in bed
Scleral icteric
Moist mucous membranes, Sublinguinal jaundice
No JVD
CTA bilateral
Normal S1-S2 no murmurs
Soft nontender nondistended bowel sounds active
No peripheral pitting edema
Jaundice
Moves extremities spontaneously
AA
Obstructive painless jaundice secondary to pancreatic head mass with plans for ERCP with Stent placement and EUS with Biopsy
-Should check CEA and CA19-9
-Post procedure will plan to resume diet
-Outpatient Oncology and GI follow up to review Bx results
Transaminitis from pancreatic mass/obstruction.
-Hold lipitor
CECILIA resolved
Original Note:
Today's Communication/Plan
-
CECILIA
- 1.3 Cr on 05/18, baseline 0.8, now 0.9
- Resolved with IV fluid hydration
- Likely secondary to poor PO intake
Obstructive jaundice, pancreatic mass
- EUS/ERCP scheduled for today was moved to tomorrow. NPO after midnight
- Concerned for cancer due to loss of appetite, 30 lb weight loss, and (+) Courvoisier sign
- Discussed possibility of cancer with pt, , daughter
- Plan to f/u w outpt heme/onc
Transaminitis, Hyperbilirubinemia
- 230 AST on 05/18, now 297
- 541 ALT on 05/18, now 571
- 5.1 total bilirubin on 05/18, now 6.2
- Hold lipitor
- Continue to monitor w CMP
HTN, HLD
- HTN Stable
- Hold lipitor for transaminitis
DVT prophylaxis
- subq heparin
Code status: Full Code
Diet: full today. NPO after midnight
Assessment / Plan
Assessment / Plan
CECILIA
- 1.3 Cr on 05/18, baseline 0.8, now 0.9
- Resolved with IV fluid hydration
- Likely secondary to poor PO intake
Obstructive jaundice, pancreatic mass
- U/s: Intrahepatic and extrahepatic biliary ductal dilatation, along with gallbladder distention
- CT: Intrahepatic and extrahepatic biliary tract dilatation extending to the region of the head of the pancreas. Suspected soft tissue tissue lesion measuring at least 1.2-1.3 cm in the region of the head of the pancreas at least suspicious for
either pancreatic head mass or lesion at the ampulla of Vater. Malignancy is the diagnosis of exclusion. MRI may be helpful for more complete evaluation. Also consider endoscopic ultrasound.
- MRI: Suggests mass in pancreatic head. Enlarged lymph nodes in periportal and portacaval region - unclear if inflammatory or neoplastic. No metastasis
- EUS/ERCP scheduled for today was moved to tomorrow. NPO after midnight
- Concerned for cancer due to loss of appetite, 30 lb weight loss, and (+) Courvoisier sign
- Discussed possibility of cancer with pt, , daughter
- Plan to f/u w outpt heme/onc
Transaminitis, Hyperbilirubinemia
- 230 AST on 05/18, now 297
- 541 ALT on 05/18, now 571
- 5.1 total bilirubin on 05/18, now 6.2
- Hold lipitor
- Continue to monitor w CMP
HTN, HLD
- Stable HTN
- Hold lipitor for transaminitis
Dementia
- continue home donepezil, memantine
Depression
- Continue home zoloft
DVT prophylaxis
- subq heparin
Code status: Full Code
Diet: full today. NPO after midnight
Anticipated Discharge: > 48 hours
Subjective/Interval History
-
Date of Service: May 21, 2024
Ms. Treva Castillo is a 78yo F pmh HTN, HLD, and dementia admitted for transaminitis, hyperbilirubinemia, and possible pancreatic head mass. Pt saw PCP for transaminitis, hyperbilirubinemia on outpatient labs and a pancreatic mass causing
intraductal hepatic dilation on outpatient u/s. Sent her to the ED. Admitted 05/18. Was NPO after midnight last night for an EUS/ERCP with biopsy. Procedure moved to tomorrow. +constipation, +weight loss 30lbs. +weakness, +tired, -DAVILA, -dizziness,
-lightheadedness, -SOB, -cough, -CP, -palpitations, -N/V/D.
Roommate states she is an unreliable historian.
Objective Data
-
Labs:
Laboratory Results
05/21/24
06:11
Sodium 140
Potassium 4.3
Chloride 103
Carbon Dioxide 18 L
BUN 13
Creatinine 0.9
Glucose 97
Calcium 10.0
Total Bilirubin 6.2 H
AST 297 H
ALT 187 H
Alkaline Phosphatase 571 H
Vital Signs:
Vital Signs
Temp Pulse Resp BP Pulse Ox
98.1 F 71 16 152/83 97
05/21/24 07:00 05/21/24 07:00 05/21/24 07:00 05/21/24 07:00 05/21/24 07:00
I&O
05/20/24 05/21/24 05/22/24
06:59 06:59 06:59
Intake Total 1480 / 1480 480 / 480
Balance 1480 / 1480 480 / 480
Review of Systems
-
Unable to obtain full review of systems at this time due to: Dementia
History Source: Patient and Other (roommate)
All other systems: Reviewed and negative
Physical Exam
-
General: No Apparent Distress
HEENT: Normocephalic and Atraumatic
Respiratory: Clear to Auscultation and Non Labored Respirations; Negative Wheezes, Rales or Rhonchi
Cardiac: Regular Rhythm and S1/S2; Negative Murmur, Rub or Gallop
GI: Soft, Nontender, Nondistended, Normal Bowel Sounds and Other (+ Courvoisier's sign)
Musculoskeletal: No Clubbing and No Edema
Skin: Warm, Dry and Jaundice
Neuro: Awake and Alert
Psych: Calm
[2024-05-21 16:00] VITALS: BP 141/87
[2024-05-21] MEDS: ZOLOFT 100 MG PO (20:47)
[2024-05-21] MEDS: ZOLOFT 50 MG PO (20:47)
[2024-05-21 23:37] VITALS: BP 146/84
[2024-05-22] VITALS (10 sets, daily range): BP systolic 140–169; BP diastolic 63–88
--- NOTE | 2024-05-22 04:55 | W.PN.HOSP.TC ---
Addendum entered and electronically signed by Arias De Leon MD 05/22/24 14:11:
for ercp with stent and eus with bx
-[facility] plan [facility] and make sure she does not develop pancreatits
Original Note:
Today's Communication/Plan
-
Assessment / Plan
Assessment / Plan
Ms. Treva Castillo is a 78yo F pmh HTN, HLD, and dementia admitted for transaminitis, hyperbilirubinemia, and possible pancreatic head mass.
CECILIA
- 1.3 Cr on 05/18, baseline 0.8, now 0.9
- Resolved with IV fluid hydration
- Likely secondary to poor PO intake
Obstructive jaundice, pancreatic head mass
- U/s: Intrahepatic and extrahepatic biliary ductal dilatation, along with gallbladder distention
- CT: Intrahepatic and extrahepatic biliary tract dilatation extending to the region of the head of the pancreas. Suspected soft tissue tissue lesion measuring at least 1.2-1.3 cm in the region of the head of the pancreas at least suspicious for
either pancreatic head mass or lesion at the ampulla of Vater. Malignancy is the diagnosis of exclusion. MRI may be helpful for more complete evaluation. Also consider endoscopic ultrasound.
- MRI: Suggests mass in pancreatic head. Enlarged lymph nodes in periportal and portacaval region - unclear if inflammatory or neoplastic. No metastasis
- Concerned for cancer due to loss of appetite, 30 lb weight loss, and (+) Courvoisier sign
- EUS/ERCP w stent placement scheduled for today. Biopsy results pending
- CEA antigen 4.85ng/mL
- CA 19-9 antigen pending
- Plan to f/u w outpt oncology and GI to review bx results
- Plan to d/c if pt is stable after her procedure
Transaminitis, Hyperbilirubinemia
- 230 AST on 05/18, now 260
- 541 ALT on 05/18, now 190
- 5.1 total bilirubin on 05/18, now 5.3
- 541 alk phos on 05/18, now 552
- Hold lipitor
- Continue to monitor w CMP
HTN, HLD
- Stable HTN
- Hold lipitor for transaminitis
Dementia
- continue home donepezil, memantine
Depression
- Continue home zoloft
DVT prophylaxis
- subq heparin
Code status: Full Code
Diet: full
Anticipated Discharge: Within 24 hours
Subjective/Interval History
-
Date of Service: May 22, 2024
Ms. Treva Castillo is a 78yo F pmh HTN, HLD, and dementia admitted 05/18 for transaminitis, hyperbilirubinemia, and possible pancreatic head mass.
NPO after midnight, heparin held for EUS/EBUS and bx today at 13:10.
+weight loss 30lbs. +weakness, +tired, -DAVILA, -fever, -chills -dizziness, -lightheadedness, -SOB, -cough, -CP, -palpitations, -N/V/D/C.
Objective Data
-
Labs:
Laboratory Results
05/22/24
06:00
Sodium Pending
Potassium Pending
Chloride Pending
Carbon Dioxide Pending
BUN Pending
Creatinine Pending
Glucose Pending
Calcium Pending
Total Bilirubin Pending
AST Pending
ALT Pending
Alkaline Phosphatase Pending
Vital Signs:
Vital Signs
Temp Pulse Resp BP Pulse Ox
98.4 F 72 20 146/84 98
05/21/24 23:37 05/21/24 23:37 05/21/24 23:37 05/21/24 23:37 05/21/24 23:37
I&O
05/20/24 05/21/24 05/22/24
06:59 06:59 06:59
Intake Total 1480 / 1480 480 / 480 100 / 100
Balance 1480 / 1480 480 / 480 100 / 100
Review of Systems
-
Unable to obtain full review of systems at this time due to: Dementia
History Source: Patient and Family
All other systems: Reviewed and negative
Physical Exam
-
General: No Apparent Distress and Conversant; Negative Fever or Chills
Respiratory: Clear to Auscultation and Non Labored Respirations; Negative Wheezes, Rales, Rhonchi or Crackles
Cardiac: Regular Rhythm and S1/S2; Negative Murmur, Rub, Carotid Bruits or Gallop
GI: Soft, Nontender, Nondistended and Other (hypoactive bowel sounds)
Genito-urinary: No Costovertebral Tender
Musculoskeletal: No Clubbing and No Cyanosis
Skin: Warm, Dry and Jaundice
Neuro: Awake and Alert; Negative Oriented
Psych: Calm
[2024-05-22 07:47] LABS: ALT (SGPT) 190 U/L (0-35); AST (SGOT) 260 U/L (14-36); Albumin 4.2 g/dl (3.5-5.0); Alkaline Phosphatase 552 U/L (38-126); Blood Urea Nitrogen 13 mg/dl (7-17); Calcium 9.9 mg/dl (8.4-10.2); Carbon Dioxide 20 mmol/L (22-30); Chloride 101 mmol/L (98-107); Estimated Creatinine Clearance 51 ml/min; Glucose 101 mg/dl (70-99); Potassium 4.3 mmol/L (3.5-5.1); Sodium 140 mmol/L (135-145); Total Bilirubin 5.3 mg/dl (0.2-1.3); Total Protein 7.8 g/dl (6.3-8.2); eGFR > 60.00
[2024-05-22] MEDS: ARICEPT 10 MG PO (07:56)
[2024-05-22] MEDS: NAMENDA 10 MG PO ×2 (07:56→20:56)
[2024-05-22 08:13] LABS: CEA 4.85 ng/ml
--- NOTE | 2024-05-22 10:48 | CM ---
Received call from Karis in admissions at [facility] who stated that as of right now, if patient needs SNF, she does not have any beds. If patient needs SNF, will look for alternate facilities.
Plan: Case management will continue to follow and assist with discharge planning. Back to apartment vrs. SNF.
[2024-05-22] MEDS: ZOLOFT 100 MG PO (21:00)
[2024-05-22] MEDS: ZOLOFT 50 MG PO (21:00)
--- NOTE | 2024-05-22 22:11 | PTCARENOTE ---
Pt had an episode of emesis while PCT took pt to the bathroom. Pt complaining of nausea. VSS. RUBEN made aware, order for zofran obtained. Will continue to monitor, call calderon in reach.
[2024-05-22] MEDS: ZOFRAN 4 MG IV (22:25)
[2024-05-23] MEDS: ATIVAN 0.5 MG PO (01:19)
[2024-05-23 03:30] VITALS: BP 163/70
--- NOTE | 2024-05-23 05:48 | W.PN.HOSP.TC ---
Addendum entered and electronically signed by Arias De Leon MD 05/23/24 15:30:
CA-19 9 pendings
S/p ercp with stent and EUS with Bx.
-Outpt GI onc follow up for bx review
This AM having abd pain, diet changed to CLD, started on IVF with LR and Lipase checks, could be stent placement vs post erco pancretits
-Will monitor closely
-Reassuring physical exam and did not look in distress when I saw her
Family updated at bedside
Original Note:
Today's Communication/Plan
-
Assessment / Plan
Assessment / Plan
Ms. Treva Castillo is a 78yo F pmh HTN, HLD, and dementia admitted for transaminitis, hyperbilirubinemia, and possible pancreatic head mass.
CECILIA
- 1.3 Cr on 05/18, baseline 0.8, now 1.0
- Resolved with IV fluid hydration
- Likely secondary to poor PO intake
Obstructive jaundice, pancreatic head mass
- U/s: Intrahepatic and extrahepatic biliary ductal dilatation, along with gallbladder distention
- CT: Intrahepatic and extrahepatic biliary tract dilatation extending to the region of the head of the pancreas. Suspected soft tissue tissue lesion measuring at least 1.2-1.3 cm in the region of the head of the pancreas at least suspicious for
either pancreatic head mass or lesion at the ampulla of Vater. Malignancy is the diagnosis of exclusion. MRI may be helpful for more complete evaluation. Also consider endoscopic ultrasound.
- MRI: Suggests mass in pancreatic head. Enlarged lymph nodes in periportal and portacaval region - unclear if inflammatory or neoplastic. No metastasis
- Concerned for cancer due to loss of appetite, 30 lb weight loss, and (+) Courvoisier sign
- EUS/ERCP w stent placement on 05/22. One stent placed in ventral pancreatic duct, one in the common bile duct
- Biopsy results pending
- Clear liquid diet s/p procedure
- 379 lipase on 05/18, 799 today s/p eus/ercp
- Fluids changed to LR
- CEA antigen 4.85ng/mL
- CA 19-9 antigen pending
- Plan to f/u w outpt oncology and GI to review bx results
- Monitor overnight for concern of acute pancreatitis vs post-procedural pain
Transaminitis, Hyperbilirubinemia
- 230 AST on 05/18, peak 297, now 224
- 541 ALT on 05/18, peak 190, now 172
- 5.1 total bilirubin on 05/18, peak 6.2, now 3.1
- 541 alk phos on 05/18, peak 571, now 479
- Hold lipitor
- Continue to monitor w CMP
HTN, HLD
- Stable HTN
- Hold lipitor for transaminitis
Dementia
- continue home donepezil, memantine
Depression
- Continue home zoloft
DVT prophylaxis
- subq heparin held for bx yesterday
Code status: Full Code
Diet: Clear liquids
Anticipated Discharge: 24 - 48 hours
Subjective/Interval History
-
Date of Service: May 23, 2024
Ms. Treva Castillo is a 78yo F h HTN, HLD, and dementia admitted for transaminitis, hyperbilirubinemia, and pancreatic head mass.
EUS/ERCP w bx completed yesterday. Pt tolerated procedure well. Now is in abdominal pain. Not able to talk much. Whimpering per RN. 1 episode bilious emesis. 1 episode loose brown-green mucus-y stool. 1 episode dark brown stool.
Objective Data
-
Labs:
Laboratory Results
05/23/24
06:00
WBC Pending
Hgb Pending
Hct Pending
Plt Count Pending
Sodium Pending
Potassium Pending
Chloride Pending
Carbon Dioxide Pending
BUN Pending
Creatinine Pending
Glucose Pending
Calcium Pending
Total Bilirubin Pending
AST Pending
ALT Pending
Alkaline Phosphatase Pending
Vital Signs:
Vital Signs
Temp Pulse Resp BP Pulse Ox
98.9 F 70 20 163/70 96
05/23/24 03:30 05/23/24 03:30 05/23/24 03:30 05/23/24 03:30 05/23/24 03:30
I&O
05/21/24 05/22/24 05/23/24
06:59 06:59 06:59
Intake Total 480 / 480 320 / 320 0 / 0
Balance 480 / 480 320 / 320 0 / 0
Review of Systems
-
Unable to obtain full review of systems at this time due to: Dementia and Acuity
Physical Exam
-
General: Appears in Distress and Pain
HEENT: Normocephalic, Atraumatic and Moist Mucous Membranes
Respiratory: Clear to Auscultation; Negative Wheezes, Rales or Rhonchi
Cardiac: Regular Rhythm and S1/S2; Negative Murmur, Rub, Carotid Bruits or Gallop
GI: Tender (epigastric, RUQ, LLQ), Distended and Other (absent bowel sounds)
Musculoskeletal: No Edema
Skin: Warm, Dry and Other (bruises on abdomen)
Neuro: Awake
--- NOTE | 2024-05-23 06:12 | W.PN.GI.CBS2 ---
Today's Communication / Plan
-
Epigastric discomfort this AM, recommend CLD and IV Lactated Ringers likely from recent stent placement vs mild PEP. See rest of recommendations as outlined below.
Assessment / Plan
-
The patient is a 78-year-old female with past medical history as noted who presents to the emergency room with abnormal ultrasound and labs. She had been noted to have increased LFTs and had ultrasound done that showed intrahepatic and extrahepatic
biliary duct dilation and gallbladder distention up to 1.7 cm. In the emergency room CT scan with IV contrast showed duct dilation again extending to the region of the head of the pancreas with suspected soft tissue lesion measuring 1.2 x 1.3 near
the head of the pancreas.
#Elevated LFTs
#Malignant Appearing Biliary Stricture
MRI/MRCP 05/19/24: Distention of the gallbladder. Diffuse intrahepatic and extrahepatic bile duct dilation. Abrupt cut off of the inferior aspect of the common bile duct within the region of the head of the pancreas. Findings are highly suggestive of
an obstructing mass in the region of the head of the pancreas. Main differential consideration would be pancreatic adenocarcinoma. Differential consideration of bile duct carcinoma and ampullary mass.
- S/p EUS/ERCP 05/22/24: Normal esophagus, stomach, duodenum, no significant pathology in pancreas, dilated CBD (16 mm) and mass in lower third of the main bile duct at level of ampulla (s/p FNA) ; ERCP with severe, malignant appearing biliary
stricture in the lower third of the CBD with upstream dilation of the biliary tree, s/p sphincterotomy with brushing and biopsies obtained from lower third of main bile duct, s/p covered metal stent with dilation and plastic biliary stent in the R
hepatic duct
Now with mild to moderate epigastric pain this AM. Suspect discomfort from recent stent placement with subsequent dilation at time of ERCP versus mild post-ERCP pancreatitis (PEP).
Recommendations:
- D/c low-residue diet this AM, start clear liquids only for today
- Start IV Lactated Ringers 150 ml/hr for 24 hrs
- Repeat LFTs down-trending this AM, reassuring
- CA 19-9 pending
- Suspect pain likely from recent placement of stent and dilation versus mild post-ERCP pancreatitis
- Would defer cross-sectional imaging at this time given exam and reassuring labs. Continue conservative management
- Await pathology results from both FNA and brushings during EUS/ERCP
- Will need outpatient f/u with Dr. Barrera in office in four months. Have sent message to office to schedule patient an appointment prior to discharge
- Rest of care per primary team
Discussed with primary internal medicine team this AM.
GI team will continue to follow while inpatient.
Subjective
Subjective
Date of Service: May 23, 2024
- S/p EUS/ERCP 05/22/24: Normal esophagus, stomach, duodenum, no significant pathology in pancreas, dilated CBD (16 mm) and mass in lower third of the main bile duct at level of ampulla (s/p FNA) ; ERCP with severe, malignant appearing biliary
stricture in the lower third of the CBD with upstream dilation of the biliary tree, s/p sphincterotomy with brushing and biopsies obtained from lower third of main bile duct, s/p covered metal stent with dilation and plastic biliary stent in the R
hepatic duct
- Repeat LFTs down-trending with T Bili 5.3 -> 3.1 this AM
Resting this AM, tired appearing but comfortable. Does note mild abdominal discomfort but very nonspecific. No nausea or vomiting. Denies any fevers, chills or other constitutional symptoms.
Notified by primary team this AM given worsening pain and re-examined. Admits moderate amount of epigastric pain but otherwise no nausea or vomiting. Subjective limited due to mental status. Hungry this AM and hoping to eat.
Objective
Data Reviewed
Laboratory Data:
Laboratory Results
PT 14.3 Sec (11.4-14.6) 05/19/24 06:24
INR 1.13 05/19/24 06:24
APTT 31.9 Sec (23.4-35.0) 05/18/24 10:11
Total Bilirubin 5.3 mg/dl (0.2-1.3) H 05/22/24 06:32
AST 260 U/L (14-36) H 05/22/24 06:32
ALT 190 U/L (0-35) H 05/22/24 06:32
Alkaline Phosphatase 552 U/L (38-126) H 05/22/24 06:32
Lipase 399 U/L (23-300) H 05/19/24 06:24
Vital Signs and I&O:
Vital Signs
Temp Pulse Resp BP Pulse Ox
98.9 F 70 20 163/70 96
05/23/24 03:30 05/23/24 03:30 05/23/24 03:30 05/23/24 03:30 05/23/24 03:30
I&O
05/21/24 05/22/24 05/23/24
06:59 06:59 06:59
Intake Total 480 / 480 320 / 320 0 / 0
Balance 480 / 480 320 / 320 0 / 0
Physical Exam
Physical Exam
HEENT: Moist mucous membranes and Other ((+) Scleral icterus)
Cardiology: Normal Sinus Rhythm
Pulmonary: Other (Normal WOB on room air)
GI: Soft, Non Distended, Flat and Tender (Mild to moderate tenderness in epigastric region)
Extremities: No Edema
Neuro: Non Focal
[2024-05-23 06:30] LABS: Hematocrit 39.6 % (37.0-47.0); Hemoglobin 13.9 g/dL (12.0-16.0); Mean Corp Hgb Conc. 35.1 g/dL (33.0-37.0); Mean Corpuscular Hgb 29.8 pg (27.0-31.0); Mean Corpuscular Volume 84.8 fL (81.0-99.0); Platelet Count 196 10^3/uL (130-400); Red Blood Cell Count 4.67 10^6/uL (4.20-5.40); Red Cell Dist. Width 13.9 % (11.5-14.5); White Blood Cell Count 10.6 10^3/uL (4.8-10.8)
[2024-05-23 06:52] LABS: ALT (SGPT) 172 U/L (0-35); AST (SGOT) 224 U/L (14-36); Alkaline Phosphatase 479 U/L (38-126); Blood Urea Nitrogen 22 mg/dl (7-17); Calcium 9.8 mg/dl (8.4-10.2); Carbon Dioxide 18 mmol/L (22-30); Chloride 101 mmol/L (98-107); Estimated Creatinine Clearance 46 ml/min; Glucose 115 mg/dl (70-99); Potassium 4.1 mmol/L (3.5-5.1); Sodium 140 mmol/L (135-145); Total Bilirubin 3.1 mg/dl (0.2-1.3); Total Protein 7.4 g/dl (6.3-8.2); eGFR 58.02
[2024-05-23] MEDS: NAMENDA 10 MG PO ×2 (07:36→19:33)
[2024-05-23] MEDS: ARICEPT 10 MG PO (07:36)
[2024-05-23 07:46] VITALS: BP 146/87
[2024-05-23] MEDS: LR 1000 IV ×3 (09:18→23:51)
[2024-05-23 09:59] LABS: Lipase 799 U/L (23-300)
[2024-05-23 11:33] VITALS: BP 145/64
--- NOTE | 2024-05-23 12:33 | CM ---
Reviewed chart. Met with patient, her spouse and daughter who are concerned that patient may need SNF prior to going back to her apartment. Request was made for PT/OT order. Will review progress and send referrals to local facilities. Family
agreeable.
Plan: Case management will continue to follow and assist with discharge planning. Home at [facility]. SNF.
[2024-05-23 14:05] VITALS: BP 145/72; PULSE 76
[2024-05-23 15:34] VITALS: BP 146/72
[2024-05-23] MEDS: DILAUDID 0.25 MG IV (19:35)
[2024-05-23] MEDS: ZOLOFT 100 MG PO (21:52)
[2024-05-23] MEDS: ZOLOFT 50 MG PO (21:52)
[2024-05-23 22:19] VITALS: BP 144/75
[2024-05-23 22:37] LABS: CA 19-9 716 U/mL (<=35)
[2024-05-24] MEDS: LR 1000 IV ×3 (06:03→14:16)
--- NOTE | 2024-05-24 06:07 | W.PN.HOSP.TC ---
Addendum entered and electronically signed by Arias De Leon MD 05/25/24 16:10:
ivf if able to tolerate diet then advance as toelrated
Original Note:
Today's Communication/Plan
-
Assessment / Plan
Assessment / Plan
Ms. Treva Castillo is a 78yo F pmh HTN, HLD, and dementia admitted for transaminitis, hyperbilirubinemia, and pancreatic head mass.
Obstructive jaundice, pancreatic head mass
- U/s: Intrahepatic and extrahepatic biliary ductal dilatation, along with gallbladder distention
- CT: Intrahepatic and extrahepatic biliary tract dilatation extending to the region of the head of the pancreas. Suspected soft tissue tissue lesion measuring at least 1.2-1.3 cm in the region of the head of the pancreas at least suspicious for
either pancreatic head mass or lesion at the ampulla of Vater. Malignancy is the diagnosis of exclusion. MRI may be helpful for more complete evaluation. Also consider endoscopic ultrasound.
- MRI: Suggests mass in pancreatic head. Enlarged lymph nodes in periportal and portacaval region - unclear if inflammatory or neoplastic. No metastasis
- Concerned for cancer due to loss of appetite, 30 lb weight loss, and (+) Courvoisier sign
- EUS/ERCP w stent placement on 05/22. One stent placed in ventral pancreatic duct, one in the common bile duct
- Biopsy results pending
- Clear liquid diet s/p procedure
- 379 lipase on 05/18, 799 on 05/24 s/p eus/ercp
- Fluids changed to LR
- CEA antigen 4.85ng/mL
- CA 19-9 antigen pending
- repeat lipase
- GI consulted & following
- Plan to f/u w outpt oncology and GI to review bx results
Loose stools, rectal bleeding
- not likely hematochezia as the blood is isolated to the diaper
- likely related to hemorrhoids or prolapse
- colorectal surgery consulted: likely due to chronic hemorrhoids, no treatment necessary at this time
Transaminitis, Hyperbilirubinemia
- 230 AST on 05/18, peak 297, now 146
- 541 ALT on 05/18, peak 190, now 120
- 5.1 total bilirubin on 05/18, peak 6.2, now 2.2
- 541 alk phos on 05/18, peak 571, now 346
- Hold lipitor
- Continue to monitor w CMP
CECILIA
- 1.3 Cr on 05/18, baseline 0.8, now 0.7
- Resolved with IV fluid hydration
- Likely secondary to poor PO intake
HTN, HLD
- Stable HTN
- Hold lipitor for transaminitis
Dementia
- continue home donepezil, memantine
- Dementia precautions
Depression
- Continue home zoloft
DVT prophylaxis
- subq heparin held for bx yesterday
Code status: Full Code
Diet: Clear liquids
Anticipated Discharge: 24 - 48 hours
Subjective/Interval History
-
Date of Service: May 24, 2024
Ms. Treva Castillo is a 78yo F pmh HTN, HLD, and dementia admitted 05/18 for transaminitis, hyperbilirubinemia, and pancreatic head mass. Pt verbalized feeling 'hurt' and wants to go home. Had some bloody stools. Per RN, it was later discovered that
she had blood in her diaper, not in her stools.
Objective Data
-
Labs:
Laboratory Results
05/24/24
06:00
Sodium Pending
Potassium Pending
Chloride Pending
Carbon Dioxide Pending
BUN Pending
Creatinine Pending
Glucose Pending
Calcium Pending
Total Bilirubin Pending
AST Pending
ALT Pending
Alkaline Phosphatase Pending
Vital Signs:
Vital Signs
Temp Pulse Resp BP Pulse Ox
98.4 F 75 16 144/75 97
05/23/24 22:19 05/23/24 22:19 05/23/24 22:19 05/23/24 22:19 05/23/24 22:19
I&O
05/22/24 05/23/24 05/24/24
06:59 06:59 06:59
Intake Total 320 / 320 0 / 0 600 / 600
Balance 320 / 320 0 / 0 600 / 600
Review of Systems
-
Unable to obtain full review of systems at this time due to: Dementia and Acuity
Physical Exam
-
General: Appears in Distress
HEENT: Normocephalic and Atraumatic
Respiratory: Clear to Auscultation and Non Labored Respirations; Negative Wheezes, Rales, Rhonchi or Crackles
Cardiac: Regular Rhythm and S1/S2; Negative Murmur, Rub or Gallop
GI: Soft, Nondistended, Normal Bowel Sounds and Tender
Musculoskeletal: No Clubbing, No Cyanosis and No Edema
Skin: Warm and Dry; Negative Rash
Neuro: Awake
[2024-05-24 07:15] LABS: ALT (SGPT) 120 U/L (0-35); AST (SGOT) 146 U/L (14-36); Albumin 3.3 g/dl (3.5-5.0); Alkaline Phosphatase 346 U/L (38-126); Blood Urea Nitrogen 15 mg/dl (7-17); Calcium 9.2 mg/dl (8.4-10.2); Carbon Dioxide 28 mmol/L (22-30); Chloride 103 mmol/L (98-107); Estimated Creatinine Clearance 65 ml/min; Glucose 94 mg/dl (70-99); Potassium 3.8 mmol/L (3.5-5.1); Sodium 140 mmol/L (135-145); Total Bilirubin 2.2 mg/dl (0.2-1.3); Total Protein 6.4 g/dl (6.3-8.2); eGFR > 60.00
[2024-05-24 07:37] VITALS: BP 155/77
[2024-05-24] MEDS: ARICEPT 10 MG PO (08:11)
[2024-05-24] MEDS: NAMENDA 10 MG PO ×2 (08:11→20:01)
[2024-05-24 11:09] LABS: Hematocrit 37.2 % (37.0-47.0); Hemoglobin 12.4 g/dL (12.0-16.0); Mean Corp Hgb Conc. 33.3 g/dL (33.0-37.0); Mean Corpuscular Hgb 28.6 pg (27.0-31.0); Mean Corpuscular Volume 85.7 fL (81.0-99.0); Mean Platelet Volume 11.8 fL (7.4-10.4); Platelet Count 192 10^3/uL (130-400); Red Blood Cell Count 4.34 10^6/uL (4.20-5.40); Red Cell Dist. Width 14.2 % (11.5-14.5); White Blood Cell Count 6.5 10^3/uL (4.8-10.8)
--- NOTE | 2024-05-24 12:41 | W.PN.GI.CBS2 ---
Addendum entered and electronically signed by Irving Callejas MD 05/24/24 15:55:
I saw and examined the patient.
The BASTING MARKER or PA's note was reviewed and I agree with the note.
Comment:
Patient is a 78-year-old woman with limited ability to communicate. She has had an EUS with FNA and ERCP and did have some abdominal pain with an elevated lipase yesterday. She does appear to be comfortable but she did have some diarrhea with
bleeding noted by the primary team.
abd: soft, mildly tender
rectal: prolapsed inflamed hemorrhoids vs prolapse
plan:
1. Check lipase tomorrow but does seem clinically improved. She does have a likely malignancy and does have an elevated CA 19-9. Dr. Barrera will follow-up with this.
2. The rectal bleeding and loose stool is related to the hemorrhoids or prolapse. On visualization they are inflamed. Treatment should be as per colorectal.
Addendum entered and electronically signed by RUBEN Helm 05/24/24 14:09:
I repeated rectal exam with Dr. Callejas. Likely rectal prolapse with ulceration and unable to reduce. Will ask colorctal to eval. Daughter updated.
Original Note:
Today's Communication / Plan
-
still with some abdominal pain, continued decreased appetite and diarrhea and small amount of blood with some limited communication with dementia
I reviewed with family LFT's with some improvement but still some abdominal pain on exam
she has had declining appetite at home may be related to underlying pancreatic process
discussed with family will trial some increased diet
cont IVF for now with poor po intake
rectal exam with some enlarged hemorrhoids with prolapse with irritation will add preparation cream
Ca 19-9 elevated at 716,
if diarrhea persist check stool studies
- Await pathology results from both FNA and brushings during EUS/ERCP
- Will need outpatient f/u with Dr. Barrera in office in four months. message sent to to office to schedule patient an appointment prior to discharge
will follow
Assessment / Plan
-
The patient is a 78-year-old female with past medical history dementia, depression, HTN, hyperlipidemia as noted who presents to the emergency room with abnormal ultrasound and labs. She had been noted to have increased LFTs and had ultrasound done
that showed intrahepatic and extrahepatic biliary duct dilation and gallbladder distention up to 1.7 cm. In the emergency room CT scan with IV contrast showed duct dilation again extending to the region of the head of the pancreas with suspected
soft tissue lesion measuring 1.2 x 1.3 near the head of the pancreas. s/p EUS with ERCP with malignant stricture with stent placement
#Elevated LFTs- trending down
#Malignant Appearing Biliary Stricture
MRI/MRCP 05/19/24: Distention of the gallbladder. Diffuse intrahepatic and extrahepatic bile duct dilation. Abrupt cut off of the inferior aspect of the common bile duct within the region of the head of the pancreas. Findings are highly suggestive of
an obstructing mass in the region of the head of the pancreas. Main differential consideration would be pancreatic adenocarcinoma. Differential consideration of bile duct carcinoma and ampullary mass.
Ca 19-9 716
- S/p EUS/ERCP 05/22/24: Normal esophagus, stomach, duodenum, no significant pathology in pancreas, dilated CBD (16 mm) and mass in lower third of the main bile duct at level of ampulla (s/p FNA) ; ERCP with severe, malignant appearing biliary
stricture in the lower third of the CBD with upstream dilation of the biliary tree, s/p sphincterotomy with brushing and biopsies obtained from lower third of main bile duct, s/p covered metal stent with dilation and plastic biliary stent in the R
hepatic duct
# post ERCP with mild to moderate epigastric pain with mild lipase elevation Suspect discomfort from recent stent placement with subsequent dilation at time of ERCP versus mild post-ERCP pancreatitis (PEP).
#rectal discomfort with hemorrhoids with prolapse on exam with small amount of blood noted
#diarrhea
# wt loss with decreased appetite
Recommendations:
still with some abdominal pain, continued decreased appetite and diarrhea and small amount of blood with some limited communication with dementia
I reviewed with family LFT's with some improvement but still some abdominal pain on exam
she has had declining appetite at home may be related to underlying pancreatic process
discussed with family will trial some increased diet
cont IVF for now with poor po intake
rectal exam with some enlarged hemorrhoids with prolapse with irritation will add preparation cream
Ca 19-9 elevated at 716,
if diarrhea persist check stool studies
- Await pathology results from both FNA and brushings during EUS/ERCP
- Will need outpatient f/u with Dr. Barrera in office in four months. message sent to to office to schedule patient an appointment prior to discharge
will follow
Subjective
Subjective
Date of Service: May 24, 2024
05/23 brown loose stool, on clear diet still with decreased appetite
Objective
Data Reviewed
Laboratory Data:
Laboratory Results
05/24/24 06:16
05/24/24 06:16
Laboratory Results
PT 14.3 Sec (11.4-14.6) 05/19/24 06:24
INR 1.13 05/19/24 06:24
APTT 31.9 Sec (23.4-35.0) 05/18/24 10:11
Total Bilirubin 2.2 mg/dl (0.2-1.3) H 05/24/24 06:16
AST 146 U/L (14-36) H 05/24/24 06:16
ALT 120 U/L (0-35) H 05/24/24 06:16
Alkaline Phosphatase 346 U/L (38-126) H 05/24/24 06:16
Lipase 799 U/L (23-300) H 05/23/24 06:05
Vital Signs and I&O:
Vital Signs
Temp Pulse Resp BP Pulse Ox
98.4 F 74 16 155/77 98
05/24/24 07:37 05/24/24 07:37 05/24/24 07:37 05/24/24 07:37 05/24/24 07:37
I&O
05/23/24 05/24/24 05/25/24
06:59 06:59 06:59
Intake Total 0 / 0 600 / 600
Balance 0 / 0 600 / 600
Physical Exam
Physical Exam
HEENT: Anicteric and Moist mucous membranes
Cardiology: Normal Sinus Rhythm
Pulmonary: Clear
GI: Soft, Non Distended and Tender (mild mid abdominal tenderness )
Extremities: No Edema
Neuro: Non Focal
--- NOTE | 2024-05-24 14:08 | CM ---
Addendum entered by MIC Olson 05/24/24 14:14:
Karis stated that she is going on vacation and Anne-Marie, will be available to do admissions.
Original Note:
Reviewed chart, placed a call to Karis in admissions at [facility] who denied that she has a bed for patient. [facility]. Will await determinations. Patient will need auth to transfer
to SNF.
Plan: Case management will continue to follow and assist with discharge planning. SNF when stable.
[2024-05-24] MEDS: DILAUDID 0.25 MG IV (14:19)
--- NOTE | 2024-05-24 15:04 | CON.CRS ---
Consultation
-
Date/Time Consultation Requested: 05/23/2024, 14:30
Date/Time Consultation Performed: 05/23/2024, 15:00
Requesting Provider: Missy Swartz
Performing Provider: Parth Ledesma MD
Reason for Consultation: rectal prolapse
Medical History
-
Chief Complaint: abnormal US/LFT
History of Present Illness:
78-year-old female presented to [facility] on 05/18/2024 due to abnormal ultrasound and labs. She had increased LFTs and ultrasound showed intrahepatic and extrahepatic biliary duct dilation and gallbladder distention to 1.[address] was
performed which showed the duct dilation extending to the region of the head of the pancreas with a suspected soft tissue lesion measuring 1.2 x 1.3 cm in the head of the pancreas. GI has been following her due to the pancreatic process. She has
underwent a fine-needle aspiration and EUS/ERCP. On exam earlier this afternoon it was noted that she had a rectal prolapse. Per patient she has not noticed anything from her rectum. I spoke to the and he agrees that she has never
complained of rectal pain or any extra tissue. We have been consulted for further surgical opinion.
Past Medical History
Past Medical History: HTN, Hypercholesterolemia and Other (dementia/anxiety)
Past Surgical History: None
Social History
Tobacco: Non-Smoker
Alcohol: None
Drug: None
Living: With Family
Family History
Family History: Reviewed & Not Pertinent
Allergies / Home Medications
Allergy/AdvReac Type Severity Reaction Status Date / Time
No Known Allergies Allergy Unverified 05/18/24 17:15
�Medication �Instructions �Recorded �Confirmed �Type
atorvastatin 20 mg tablet 20 mg PO DAILY High Cholesterol 05/18/24 05/18/24 History
calcium carbonate 500 mg PO DAILY Supplement 05/18/24 05/18/24 History
donepezil 10 mg tablet 10 mg PO DAILY Neurological 05/18/24 05/18/24 History
Condition
lorazepam 0.5 mg tablet 0.5 mg PO HS PRN sleep 05/18/24 05/18/24 History
losartan 100 mg tablet 100 mg PO HS Blood Pressure 05/18/24 05/18/24 History
memantine 10 mg tablet 10 mg PO BID Neurological Condition 05/18/24 05/18/24 History
sertraline 100 mg tablet 100 mg PO HS Depression 05/18/24 05/18/24 History
sertraline 50 mg tablet 50 mg PO HS Depression 05/18/24 05/18/24 History
therapeutic multivitamin 1 tab PO DAILY Supplement 05/18/24 05/18/24 History
Review of Systems
-
Unable to obtain full review of systems at this time due to: Dementia
All other systems: Negative unless noted
A 10 point review of systems was completed, and was negative except as per HPI.
Physical Exam
Vital Signs
Temp 98.4 F 05/24/24 07:37
Pulse 74 05/24/24 07:37
Resp Rate 16 05/24/24 07:37
Blood pressure 155/77 05/24/24 07:37
SaO2 98 05/24/24 07:37
Lab Results / Allergies
05/24/24 06:16
05/24/24 06:16
WBC 6.5 10^3/uL (4.8-10.8) 05/24/24 06:16
Hgb 12.4 g/dL (12.0-16.0) 05/24/24 06:16
Hct 37.2 % (37.0-47.0) 05/24/24 06:16
Plt Count 192 10^3/uL (130-400) 05/24/24 06:16
Allergy/AdvReac Type Severity Reaction Status Date / Time
No Known Allergies Allergy Unverified 05/18/24 17:15
Physical Exam
General: Well Developed, Well Nourished and No Apparent Distress
Rectal: Other (Large external hemorrhoids with an internal prolapsing component. No masses noted. No rectal prolapse noted.)
Skin: Warm and Dry
Neuro: AO x 3
Psych: Calm
Data Reviewed
-
Labs: Labs Reviewed by me and Discussed with Physician
Old Records: Reviewed
Assessment / Plan
-
Assessment: 78-year-old female admitted due to abnormal ultrasound and LFTs, found to have a pancreatic process. Concern for rectal prolapse noted on exam. Found to have large external hemorrhoids with a component of internal prolapsing
hemorrhoids.
Plan:
I spoke to the patient and the patient's . She has had hemorrhoids but they have been asymptomatic. She is currently not on any rectal pain. Her and the patient both state that she has never had a rectal prolapse while at home.
Given her comorbidities, she is not a surgical candidate for hemorrhoid surgery at this time. I advised sitz bath's if needed should they become painful and topical creams as needed. The and daughter agree that the patient would not want
surgery for her hemorrhoids. Will sign off. Please contact us if any further issues arise.
[2024-05-24 15:32] VITALS: BP 178/81
[2024-05-24] MEDS: ZOLOFT 50 MG PO (21:48)
[2024-05-24] MEDS: ATIVAN 0.5 MG PO (21:48)
[2024-05-24] MEDS: ZOLOFT 100 MG PO (21:48)
[2024-05-24 22:10] LABS: Glucose - Point of Care 86 mg/dl (70-99)
[2024-05-24 23:33] VITALS: BP 142/78
[2024-05-25] MEDS: LR 1000 IV (00:20)
--- NOTE | 2024-05-25 05:16 | W.PN.HOSP.TC ---
Addendum entered and electronically signed by Arias De Leon MD 05/25/24 16:10:
total time discharging 33min
toelrating diet
feeling better
understand that she needs to follow up with gi and onc as an outpatient
from there family will make a descision on treatment vs hospice.
Original Note:
Today's Communication/Plan
-
Assessment / Plan
Assessment / Plan
Ms. Treva Castillo is a 78yo F pmh HTN, HLD, and dementia admitted for transaminitis, hyperbilirubinemia, and pancreatic head mass.
Obstructive jaundice, pancreatic head mass
- U/s: Intrahepatic and extrahepatic biliary ductal dilatation, along with gallbladder distention
- CT: Intrahepatic and extrahepatic biliary tract dilatation extending to the region of the head of the pancreas. Suspected soft tissue tissue lesion measuring at least 1.2-1.3 cm in the region of the head of the pancreas at least suspicious for
either pancreatic head mass or lesion at the ampulla of Vater. Malignancy is the diagnosis of exclusion. MRI may be helpful for more complete evaluation. Also consider endoscopic ultrasound.
- MRI: Suggests mass in pancreatic head. Enlarged lymph nodes in periportal and portacaval region - unclear if inflammatory or neoplastic. No metastasis
- Concerned for cancer due to loss of appetite, 30 lb weight loss, and (+) Courvoisier sign
- EUS/ERCP w stent placement on 05/22. One stent placed in ventral pancreatic duct, one in the common bile duct
- Biopsy results pending
- Clear liquid diet s/p procedure
- 379 lipase on 05/18, 799 on 05/24 s/p eus/ercp
- Fluids changed to LR
- CEA antigen 4.85ng/mL
- CA 19-9 antigen pending
- repeat lipase
- GI consulted & following
- Plan to f/u w outpt oncology and GI to review bx results
Loose stools, rectal bleeding
- not likely hematochezia as the blood is isolated to the diaper
- likely related to hemorrhoids or prolapse
- colorectal surgery consulted: likely due to chronic hemorrhoids, no treatment necessary at this time
- Family concerned, contacted GI to reevaluate
Transaminitis, Hyperbilirubinemia
- 230 AST on 05/18, peak 297, now 103
- 541 ALT on 05/18, peak 190, now 85
- 5.1 total bilirubin on 05/18, peak 6.2, now 2.1
- 541 alk phos on 05/18, peak 571, now 290
- Hold lipitor
- Continue to monitor w CMP
Hypokalemia
- 3.2 K
- replete w KCl
CECILIA
- 1.3 Cr on 05/18, baseline 0.8, now 0.7
- Resolved with IV fluid hydration
- Likely secondary to poor PO intake
HTN, HLD
- Stable HTN
- Hold lipitor for transaminitis
Dementia
- continue home donepezil, memantine
Depression
- Continue home zoloft
DVT prophylaxis
- subq heparin held post biopsy
Code status: Full Code
Diet: Clear liquids
Anticipated Discharge: Within 24 hours
Subjective/Interval History
-
Date of Service: May 25, 2024
Ms. Treva Castillo is a 78yo F h HTN, HLD, and dementia admitted for transaminitis, hyperbilirubinemia, and pancreatic head mass. Has no abdominal pain today, feels well. Family concerned about diarrhea and does not want her discharged for fear
she will be readmitted because of the diarrhea/complication from it.
Objective Data
-
Labs:
Laboratory Results
05/25/24
06:00
WBC Pending
Hgb Pending
Hct Pending
Plt Count Pending
Sodium Pending
Potassium Pending
Chloride Pending
Carbon Dioxide Pending
BUN Pending
Creatinine Pending
Glucose Pending
Calcium Pending
Total Bilirubin Pending
AST Pending
ALT Pending
Alkaline Phosphatase Pending
Vital Signs:
Vital Signs
Temp Pulse Resp BP Pulse Ox
98.2 F 79 14 142/78 99
05/24/24 23:33 05/24/24 23:33 05/24/24 23:33 05/24/24 23:33 05/24/24 23:33
I&O
05/23/24 05/24/24 05/25/24
06:59 06:59 06:59
Intake Total 0 / 0 600 / 600 480 / 480
Balance 0 / 0 600 / 600 480 / 480
Review of Systems
-
History Source: Patient
All other systems: Reviewed and negative
Constitutional: Denies Fever or Chills
Respiratory: Denies Cough or Trouble Breathing
Cardiac: Denies Chest Pain, Diaphoresis or Palpitations
Abdomen/GI: Denies Abdominal Pain, Nausea, Vomiting, Diarrhea or Constipated
Physical Exam
-
General: Well Developed, Well Nourished, No Apparent Distress, Comfortable and Conversant
HEENT: Normocephalic and Atraumatic
Respiratory: Clear to Auscultation and Non Labored Respirations; Negative Wheezes, Rales or Rhonchi
Cardiac: Regular Rhythm and S1/S2; Negative Murmur, Rub or Gallop
GI: Soft, Nontender, Nondistended and Normal Bowel Sounds
Musculoskeletal: No Edema
Skin: Warm and Dry; Negative Rash
Neuro: AO x 3
Psych: Calm
[2024-05-25 07:38] LABS: Hematocrit 35.2 % (37.0-47.0); Hemoglobin 12.2 g/dL (12.0-16.0); Mean Corp Hgb Conc. 34.7 g/dL (33.0-37.0); Mean Corpuscular Hgb 28.5 pg (27.0-31.0); Mean Corpuscular Volume 82.2 fL (81.0-99.0); Mean Platelet Volume 10.7 fL (7.4-10.4); Platelet Count 200 10^3/uL (130-400); Red Blood Cell Count 4.28 10^6/uL (4.20-5.40); Red Cell Dist. Width 13.7 % (11.5-14.5); White Blood Cell Count 8.3 10^3/uL (4.8-10.8)
[2024-05-25 07:45] VITALS: BP 151/76
[2024-05-25 08:06] LABS: ALT (SGPT) 85 U/L (0-35); AST (SGOT) 103 U/L (14-36); Albumin 3.1 g/dl (3.5-5.0); Alkaline Phosphatase 290 U/L (38-126); Blood Urea Nitrogen 9 mg/dl (7-17); Carbon Dioxide 26 mmol/L (22-30); Chloride 101 mmol/L (98-107); Estimated Creatinine Clearance 76 ml/min; Glucose 99 mg/dl (70-99); Lipase 118 U/L (23-300); Potassium 3.2 mmol/L (3.5-5.1); Sodium 138 mmol/L (135-145); Total Bilirubin 2.1 mg/dl (0.2-1.3); eGFR > 60.00
[2024-05-25] MEDS: ARICEPT 10 MG PO (08:20)
[2024-05-25] MEDS: NAMENDA 10 MG PO ×2 (08:20→22:04)
--- NOTE | 2024-05-25 08:53 | W.PN.GI.CBS2 ---
Today's Communication / Plan
-
Improving from GI standpoint with resolution of pain. Stop IVF if tolerating breakfast this AM, low-fat diet at discharge. Dr. Barrera to f/u pathology results as outpatient along with outpatient follow-up. Rest of care as outlined below. GI will
sign-off, please recontact with questions/concerns.
Assessment / Plan
-
The patient is a 78-year-old female with past medical history dementia, depression, HTN, hyperlipidemia as noted who presents to the emergency room with abnormal ultrasound and labs. She had been noted to have increased LFTs and had ultrasound done
that showed intrahepatic and extrahepatic biliary duct dilation and gallbladder distention up to 1.7 cm. In the emergency room CT scan with IV contrast showed duct dilation again extending to the region of the head of the pancreas with suspected
soft tissue lesion measuring 1.2 x 1.3 near the head of the pancreas. s/p EUS with ERCP with malignant stricture with stent placement.
#Elevated LFTs
#Abdominal 2/2 Post-ERCP
#Malignant Appearing Biliary Stricture
MRI/MRCP 05/19/24: Distention of the gallbladder. Diffuse intrahepatic and extrahepatic bile duct dilation. Abrupt cut off of the inferior aspect of the common bile duct within the region of the head of the pancreas. Findings are highly suggestive of
an obstructing mass in the region of the head of the pancreas. Main differential consideration would be pancreatic adenocarcinoma. Differential consideration of bile duct carcinoma and ampullary mass. S/p EUS/ERCP 05/22/24: Normal esophagus, stomach,
duodenum, no significant pathology in pancreas, dilated CBD (16 mm) and mass in lower third of the main bile duct at level of ampulla (s/p FNA) ; ERCP with severe, malignant appearing biliary stricture in the lower third of the CBD with upstream
dilation of the biliary tree, s/p sphincterotomy with brushing and biopsies obtained from lower third of main bile duct, s/p covered metal stent with dilation and plastic biliary stent in the R hepatic duct
Mild to moderate epigastric pain after recent EUS/ERCP, likely combination of discomfort from recent stent placement with subsequent dilation at time of ERCP and underlying mild post-ERCP pancreatitis (PEP). Now much improved with down-trending LFTs
and tolerating some oral intake.
Recommendations:
- May stop IVF today if tolerating p.o intake this AM / later today
- Advance diet as tolerated, continue low-fat diet
- LFTs and T Bili improving, would repeat LFTs and T Bili in 1-2 weeks as outpatient
- Ca 19-9 716
- FNA of mass still pending, bx from stricture (-) for malignant cells
- Will need outpatient f/u with Dr. Barrera in office in four months. Message sent to office to schedule patient an appointment prior to discharge
#BRBPR #Hemorrhoids
Found to have large external hemorrhoids and possible concern for rectal prolapse on exam on 05/24. Evaluated by CRS, advised topical therapy as felt to have chronic hemorrhoids without evidence of prolapse
- Hgb remains stable
- Continue topical agents as needed, sitz baths
Discussed with internal medicine team this AM.
GI team will sign-off. Please call back with any questions or concerns.
Subjective
Subjective
Date of Service: May 25, 2024
- LFTs improving with T Bili 3s -> 2.1 ; lipase repeated 799 -> 118
- Otherwise, no acute events overnight
Feeling better this morning, no further abdominal pain. Still with mild nausea but hungry this AM. No episodes of vomiting yesterday. Tolerated CLD with advancing diet. Otherwise, no fevers or chills. No further episodes of BRBPR this morning.
Discussed with patient's nurse at bedside this AM.
Objective
Data Reviewed
Laboratory Data:
Laboratory Results
05/25/24 07:13
05/25/24 07:13
Laboratory Results
PT 14.3 Sec (11.4-14.6) 05/19/24 06:24
INR 1.13 05/19/24 06:24
APTT 31.9 Sec (23.4-35.0) 05/18/24 10:11
Total Bilirubin 2.1 mg/dl (0.2-1.3) H 05/25/24 07:13
AST 103 U/L (14-36) H 05/25/24 07:13
ALT 85 U/L (0-35) H 05/25/24 07:13
Alkaline Phosphatase 290 U/L (38-126) H 05/25/24 07:13
Lipase 118 U/L (23-300) 05/25/24 07:13
Vital Signs and I&O:
Vital Signs
Temp Pulse Resp BP Pulse Ox
98 F 72 16 151/76 98
05/25/24 07:45 05/25/24 07:45 05/25/24 07:45 05/25/24 07:45 05/25/24 07:45
I&O
05/24/24 05/25/24 05/26/24
06:59 06:59 06:59
Intake Total 600 / 600 964 / 964 98 / 98
Balance 600 / 600 964 / 964 98 / 98
Physical Exam
Physical Exam
HEENT: Anicteric and Moist mucous membranes
Cardiology: Normal Sinus Rhythm
Pulmonary: Other (Normal WOB on room air)
GI: Soft, Non Distended, Flat and Non Tender
Extremities: No Edema
Neuro: Non Focal
[2024-05-25] MEDS: LR IV (10:45)
[2024-05-25 11:55] VITALS: BP 173/90; PULSE 72; O2SAT 99
[2024-05-25] MEDS: KCL ELIXIR 40 MEQ PO (13:28)
[2024-05-25] MEDS: PREPARATION H MAX STRENGTH PAIN RELIEF CREAM 1 APPLIC RECTAL ×2 (13:48→22:12)
[2024-05-25] MEDS: DILAUDID 0.25 MG IV ×2 (14:00→23:20)
[2024-05-25 15:43] VITALS: BP 156/71
--- NOTE | 2024-05-25 15:43 | CM ---
Received message from Shiraz Magana (Suzy), that she has a bed available today, tomorrow. Thus far no other facility has been able to take patient that they have requested. Suzy stated that she may not have the bed after tomorrow. She understands that
insurance auth could not be received until after tomorrow.
Met with patient's family who stated that they would really prefer that patient goes to [facility]. Placed a call to Karis in admissions at [facility] however there was no answer or voice mail to leave message. Will attempt another call
to determine bed status.
Plan: Case management will continue to follow and assist with discharge planning. SNF when stable, family hopeful for [facility].
[2024-05-25] MEDS: ZOLOFT 100 MG PO (22:04)
[2024-05-25] MEDS: ZOLOFT 50 MG PO (22:05)
--- NOTE | 2024-05-25 22:14 | PTCARENOTE ---
Pt OOB to BSC to void w/assist. Upon rising large amount of bright red blood noted in BSC and dripping from rectum. Pt holding lower abdomen, indicating pain. Assisted back to bed. Hygiene and linen change completed. External hemorrhoids noted,
PRN preparation H administered. SUPERVISOR SEWING ROOM covering to be notified. VSS. Bed alarm active. Call calderon within reach.
[2024-05-25 22:19] VITALS: BP 128/72
[2024-05-25 23:26] LABS: Hematocrit 37.3 % (37.0-47.0); Hemoglobin 12.9 g/dL (12.0-16.0)
--- NOTE | 2024-05-26 02:02 | W.PN.UPDATE ---
Update Note
Progress Note Update
RN notified FINANCIAL SALES REPRESENTATIVE, patient had large amount of bright red blood per rectum, noted External hemorrhoids. will check h&h stat. RN will apply prn prep H. stable VS.
--- NOTE | 2024-05-26 05:46 | W.PN.HOSP.TC ---
Addendum entered and electronically signed by Arias De Leon MD 05/26/24 13:39:
Seen and examined. No acute overnight events
Planned for ERCP with EUS with Bx.
Daughter and at bedside
Had a discussion with them in terms of performance status tolerating chemo. If she does not have a good performance status then she may not be a candidate for chemo as this would be causing more harm then benefit
Verablized understanding
They understand the risk of pancreatitis from ERCP and undergoing sedation.
NAD, resting comfortably in bed
Scleral icteric
Moist mucous membranes, Sublinguinal jaundice
No JVD
CTA bilateral
Normal S1-S2 no murmurs
Soft Epigastic TTP nondistended bowel sounds active
No peripheral pitting edema
Jaundice
Moves extremities spontaneously
AA
Obstructive painless jaundice secondary to pancreatic head mass. S/p ERCP with stent and EUS w/ Bx.
-CEA 4.85
-CA19-9 716
-Outpatient GI and Onc follow up to follow up on Bx results
-Intermittent abd pain, possible related to mass and stent.
- -Will ask GI to eval
- -Stop IV hydromorphone
- -Start tylenol and tylenol #3
Apetite
-Poor
-Could be related to maligancy
-Can trial remeron 15mg HS
Transaminitis from pancreatic mass/obstruction.
-Hold lipitor
HypoK
-Repelte prn
BRBPR overnight secondary to likely hemorrhoids
-Hemodynamically stable
-Hgb stable
-Was seen by colorectal surgery earlier on the admission. No further surgical interbention required
CECILIA resolved
DVT ppx start LMWH
PTOT rec SNF, Family agreeable to this
Original Note:
Today's Communication/Plan
-
Assessment / Plan
Assessment / Plan
Ms. Treva Castillo is a 78yo F pmh HTN, HLD, and dementia admitted for transaminitis, hyperbilirubinemia, and pancreatic head mass.
Obstructive jaundice, pancreatic head mass
- U/s: Intrahepatic and extrahepatic biliary ductal dilatation, along with gallbladder distention
- CT: Intrahepatic and extrahepatic biliary tract dilatation extending to the region of the head of the pancreas. Suspected soft tissue tissue lesion measuring at least 1.2-1.3 cm in the region of the head of the pancreas at least suspicious for
either pancreatic head mass or lesion at the ampulla of Vater. Malignancy is the diagnosis of exclusion. MRI may be helpful for more complete evaluation. Also consider endoscopic ultrasound.
- MRI: Suggests mass in pancreatic head. Enlarged lymph nodes in periportal and portacaval region - unclear if inflammatory or neoplastic. No metastasis
- Concerned for cancer due to loss of appetite, 30 lb weight loss, and (+) Courvoisier sign
- EUS/ERCP w stent placement on 05/22. One stent placed in ventral pancreatic duct, one in the common bile duct
- Biopsy results pending
- Clear liquid diet s/p procedure
- 379 lipase on 05/18, 799 on 05/24 s/p eus/ercp
- Fluids changed to LR
- CEA antigen 4.85ng/mL
- CA 19-9 antigen pending
- repeat lipase
- GI consulted & following
- PT/OT consulted
- Plan to f/u w outpt oncology and GI to review bx results
Loose stools, rectal bleeding
- not likely hematochezia as the blood is isolated to the diaper
- likely related to hemorrhoids or prolapse
- colorectal surgery consulted: likely due to chronic hemorrhoids, no treatment necessary at this time
- Episode of bowel movement w bright red blood. Likely due to hemorrhoids
Transaminitis, Hyperbilirubinemia
- 230 AST on 05/18, peak 297, now 77
- 541 ALT on 05/18, peak 190, now 70
- 5.1 total bilirubin on 05/18, peak 6.2, now 2.1
- 541 alk phos on 05/18, peak 571, now 258
- Hold lipitor
- Continue to monitor w CMP
Hypokalemia
- 3.4 K
- replete w KCl
CECILIA
- 1.3 Cr on 05/18, baseline 0.8, now 0.7
- Resolved with IV fluid hydration
- Likely secondary to poor PO intake
HTN, HLD
- Stable HTN
- Hold lipitor for transaminitis
Dementia
- continue home donepezil, memantine
Depression
- Continue home zoloft
DVT prophylaxis
- subq heparin held post biopsy
Code status: Full Code
Diet: low fat
Anticipated Discharge: Within 24 hours
Subjective/Interval History
-
Date of Service: May 26, 2024
Ms. Treva Castillo is a 78yo F h HTN, HLD, and dementia admitted for transaminitis, hyperbilirubinemia, and pancreatic head mass. Her family is concerned about diarrhea. Pt did not tolerate PO potassium supplement. Ate about 15% of her food
yesterday, then lost her appetite. Overnight, RN had large amount of bright red blood per rectum. No loose stools. No pain or concerns for Treva.
Objective Data
-
Labs:
Laboratory Results
05/25/24 05/26/24
23:17 06:00
WBC Pending
Hgb 12.9 Pending
Hct 37.3 Pending
Plt Count Pending
Sodium Pending
Potassium Pending
Chloride Pending
Carbon Dioxide Pending
BUN Pending
Creatinine Pending
Glucose Pending
Calcium Pending
Total Bilirubin Pending
AST Pending
ALT Pending
Alkaline Phosphatase Pending
Vital Signs:
Vital Signs
Temp Pulse Resp BP Pulse Ox
99.1 F 81 16 128/72 95
05/25/24 22:19 05/25/24 22:19 05/25/24 22:19 05/25/24 22:19 05/25/24 22:19
I&O
05/24/24 05/25/24 05/26/24
06:59 06:59 06:59
Intake Total 600 / 600 964 / 964 1138 / 1138
Balance 600 / 600 964 / 964 1138 / 1138
Review of Systems
-
Unable to obtain full review of systems at this time due to: Dementia
History Source: Patient, Family and Records
Constitutional: Reports No Appetite; Denies Fever or Chills
Respiratory: Reports No Symptoms
Cardiac: Reports No Symptoms
Abdomen/GI: Reports Bloody Stools; Denies Abdominal Pain, Nausea, Vomiting or Diarrhea
Genitourinary: Reports No Symptoms
Neuro: Reports No Symptoms
Physical Exam
-
General: Well Developed, Well Nourished, No Apparent Distress and Comfortable
HEENT: Normocephalic and Atraumatic
Respiratory: Clear to Auscultation, Non Labored Respirations and Other (cough); Negative Wheezes, Rales or Rhonchi
Cardiac: Regular Rhythm and S1/S2; Negative Murmur, Rub or Gallop
GI: Soft, Nontender, Nondistended and Normal Bowel Sounds
Musculoskeletal: No Edema
Skin: Warm and Dry
[2024-05-26 07:44] VITALS: BP 131/69
[2024-05-26] MEDS: ARICEPT 10 MG PO (08:07)
[2024-05-26] MEDS: NAMENDA 10 MG PO ×2 (08:07→20:14)
[2024-05-26 08:27] LABS: Hematocrit 34.4 % (37.0-47.0); Hemoglobin 11.8 g/dL (12.0-16.0); Mean Corp Hgb Conc. 34.3 g/dL (33.0-37.0); Mean Corpuscular Hgb 28.8 pg (27.0-31.0); Mean Corpuscular Volume 83.9 fL (81.0-99.0); Mean Platelet Volume 11.1 fL (7.4-10.4); Platelet Count 205 10^3/uL (130-400); Red Cell Dist. Width 13.4 % (11.5-14.5); White Blood Cell Count 10.6 10^3/uL (4.8-10.8)
[2024-05-26 09:04] LABS: ALT (SGPT) 70 U/L (0-35); AST (SGOT) 77 U/L (14-36); Albumin 3.3 g/dl (3.5-5.0); Alkaline Phosphatase 258 U/L (38-126); Blood Urea Nitrogen 11 mg/dl (7-17); Calcium 9.1 mg/dl (8.4-10.2); Carbon Dioxide 27 mmol/L (22-30); Chloride 100 mmol/L (98-107); Estimated Creatinine Clearance 65 ml/min; Glucose 103 mg/dl (70-99); Potassium 3.4 mmol/L (3.5-5.1); Sodium 140 mmol/L (135-145); Total Bilirubin 2.1 mg/dl (0.2-1.3); Total Protein 6.2 g/dl (6.3-8.2); eGFR > 60.00
--- NOTE | 2024-05-26 12:27 | PTCARENOTE ---
PT assisted OOB to chair. pt needed cue for every step to be able accomplish this task. pt assisted to bed withchair alarm. Daughter at bedside.
[2024-05-26 12:37] VITALS: BP 151/77; PULSE 69; O2SAT 98
[2024-05-26] MEDS: TYLENOL 325 MG PO ×2 (13:24→20:17)
[2024-05-26 15:47] VITALS: BP 150/77
--- NOTE | 2024-05-26 16:29 | CM ---
Family requested [facility] pt lives at [facility].
LM with [facility] Dyson for bed arability. No call back.
Need to find [facility] SNF . Needs auth .
PLAN To Snf after located and auth obtained
[2024-05-26] MEDS: KCL 40 MEQ PO (20:14)
[2024-05-26] MEDS: ZOLOFT 50 MG PO (21:58)
[2024-05-26] MEDS: ZOLOFT 100 MG PO (21:58)
[2024-05-26 23:25] VITALS: BP 144/70
[2024-05-26 23:28] VITALS: BP 148/71
[2024-05-27 07:00] VITALS: BP 152/83
[2024-05-27] MEDS: ARICEPT 10 MG PO (08:05)
[2024-05-27] MEDS: NAMENDA 10 MG PO ×2 (08:05→20:24)
--- NOTE | 2024-05-27 08:41 | W.PN.HOSP.TC ---
Addendum entered and electronically signed by Arias De Leon MD 05/27/24 13:02:
Seen and examined. No new compalints. No acute overniggt events
NAD, resting comfortably in bed
Scleral icteric
Moist mucous membranes, Sublinguinal jaundice
No JVD
CTA bilateral
Normal S1-S2 no murmurs
Soft Epigastic TTP nondistended bowel sounds active
No peripheral pitting edema
Jaundice
Moves extremities spontaneously
AA
Obstructive painless jaundice secondary to pancreatic head mass. S/p ERCP with stent and EUS w/ Bx.
-CEA 4.85
-CA19-9 716
-Outpatient GI and Onc follow up to follow up on Bx results
-Intermittent abd pain, possible related to mass and stent.
- -Will ask GI to eval
- -Stop IV hydromorphone
- -Start tylenol and tylenol #3
Apetite
-Poor
-Could be related to maligancy
-Can trial remeron 15mg HS
Transaminitis from pancreatic mass/obstruction.
-Hold lipitor
HypoK
-Repelte prn
BRBPR overnight secondary to likely hemorrhoids
-Hemodynamically stable
-Hgb stable
-Was seen by colorectal surgery earlier on the admission. No further surgical interbention required
CECILIA resolved
DVT ppx start LMWH
PTOT rec SNF, Family agreeable to this
Original Note:
Today's Communication/Plan
-
Assessment / Plan
Assessment / Plan
Ms. Treva Castillo is a 78yo F pmh HTN, HLD, and dementia admitted for transaminitis, hyperbilirubinemia, and pancreatic head mass.
Obstructive jaundice, pancreatic head mass
- U/s: Intrahepatic and extrahepatic biliary ductal dilatation, along with gallbladder distention
- CT: Intrahepatic and extrahepatic biliary tract dilatation extending to the region of the head of the pancreas. Suspected soft tissue tissue lesion measuring at least 1.2-1.3 cm in the region of the head of the pancreas at least suspicious for
either pancreatic head mass or lesion at the ampulla of Vater. Malignancy is the diagnosis of exclusion. MRI may be helpful for more complete evaluation. Also consider endoscopic ultrasound.
- MRI: Suggests mass in pancreatic head. Enlarged lymph nodes in periportal and portacaval region - unclear if inflammatory or neoplastic. No metastasis
- Concerned for cancer due to loss of appetite, 30 lb weight loss, and (+) Courvoisier sign
- EUS/ERCP w stent placement on 05/22. One stent placed in ventral pancreatic duct, one in the common bile duct
- Biopsy results pending
- Clear liquid diet s/p procedure
- 379 lipase on 05/18, 799 on 05/24 s/p eus/ercp
- Fluids changed to LR
- CEA antigen 4.85ng/mL
- CA 19-9 antigen pending
- repeat lipase
- GI consulted & following
- PT/OT consulted
- Plan to f/u w outpt oncology and GI to review bx results
Loose stools, rectal bleeding
- not likely hematochezia as the blood is isolated to the diaper
- likely related to hemorrhoids or prolapse
- colorectal surgery consulted: likely due to chronic hemorrhoids, no treatment necessary at this time
- Episode of bowel movement w bright red blood. Likely due to hemorrhoids
Transaminitis, Hyperbilirubinemia
- 230 AST on 05/18, peak 297, now 63
- 541 ALT on 05/18, peak 190, now 58
- 5.1 total bilirubin on 05/18, peak 6.2, now 1.9
- 541 alk phos on 05/18, peak 571, now 241
- overall improving s/p common bile duct stent and ventral pancreatic duct stent
- Hold lipitor
- Continue to monitor w CMP
Hypokalemia
- 3.4 K on 05/26. Today K 3.6.
- repleted w KCl
- Resolved
CECILIA
- 1.3 Cr on 05/18, baseline 0.8, now 0.6
- Resolved with IV fluid hydration
- Likely secondary to poor PO intake
HTN, HLD
- Stable HTN
- Hold lipitor for transaminitis
Dementia
- continue home donepezil, memantine
Depression
- Continue home zoloft
DVT prophylaxis
- subq heparin
Code status: Full Code
Diet: low fat
Anticipated Discharge: Within 24 hours
Subjective/Interval History
-
Date of Service: May 27, 2024
Ms. Treva Castillo is a 78yo F pmh HTN, HLD, and dementia admitted for transaminitis, hyperbilirubinemia, and pancreatic head mass. No acute overnight events. No diarrhea. Waiting for a bed placement at an SNF.
Objective Data
-
Labs:
Laboratory Results
05/27/24
08:35
WBC Pending
Hgb Pending
Hct Pending
Plt Count Pending
Sodium Pending
Potassium Pending
Chloride Pending
Carbon Dioxide Pending
BUN Pending
Creatinine Pending
Glucose Pending
Calcium Pending
Total Bilirubin Pending
AST Pending
ALT Pending
Alkaline Phosphatase Pending
Vital Signs:
Vital Signs
Temp Pulse Resp BP Pulse Ox
97.6 F 72 16 148/71 95
05/26/24 23:28 05/26/24 23:28 05/26/24 23:28 05/26/24 23:28 05/26/24 23:28
I&O
05/26/24 05/27/24 05/28/24
06:59 06:59 06:59
Intake Total 1138 / 1138 680 / 680
Balance 1137 /
Review of Systems
-
Unable to obtain full review of systems at this time due to: Dementia
History Source: Patient
Respiratory: Reports No Symptoms
Cardiac: Reports No Symptoms
Abdomen/GI: Reports No Symptoms
Neuro: Reports No Symptoms
Physical Exam
-
General: No Apparent Distress and Comfortable
HEENT: Normocephalic and Atraumatic
Respiratory: Clear to Auscultation; Negative Wheezes, Rales or Rhonchi
Cardiac: Regular Rhythm and S1/S2; Negative Murmur, Rub or Gallop
GI: Soft, Nontender, Nondistended and Normal Bowel Sounds
Musculoskeletal: No Cyanosis and No Edema
Skin: Warm and Dry
Neuro: Awake
--- NOTE | 2024-05-27 09:38 | CM ---
Addendum entered by Sylvia Ramos RN 05/27/24 16:43:
Family requested [facility] SNF bed . Pt needs auth.
Original Note:
Spoke with Anne-Marie [phone] from [facility] no bed available.
Called Alyse From [facility] she requested an update in care port which was done, she said their is a bed female ready .
Spoke with Tiburcio son Tiburcio Arlen joinert explained above . They will review [facility] and call me back .
If family accepts [employer] auth needed.
Family requested ambulance .
PLAN To Snf after auth
[2024-05-27 09:49] LABS: Hematocrit 33.6 % (37.0-47.0); Hemoglobin 11.8 g/dL (12.0-16.0); Mean Corp Hgb Conc. 35.1 g/dL (33.0-37.0); Mean Corpuscular Hgb 28.9 pg (27.0-31.0); Mean Corpuscular Volume 82.2 fL (81.0-99.0); Mean Platelet Volume 10.9 fL (7.4-10.4); Platelet Count 220 10^3/uL (130-400); Red Blood Cell Count 4.09 10^6/uL (4.20-5.40); Red Cell Dist. Width 13.4 % (11.5-14.5); White Blood Cell Count 8.2 10^3/uL (4.8-10.8)
[2024-05-27 10:20] LABS: ALT (SGPT) 58 U/L (0-35); AST (SGOT) 63 U/L (14-36); Albumin 3.4 g/dl (3.5-5.0); Alkaline Phosphatase 241 U/L (38-126); Blood Urea Nitrogen 12 mg/dl (7-17); Calcium 9.3 mg/dl (8.4-10.2); Carbon Dioxide 26 mmol/L (22-30); Chloride 101 mmol/L (98-107); Estimated Creatinine Clearance 76 ml/min; Glucose 88 mg/dl (70-99); Potassium 3.6 mmol/L (3.5-5.1); Sodium 140 mmol/L (135-145); Total Bilirubin 1.9 mg/dl (0.2-1.3); Total Protein 6.3 g/dl (6.3-8.2); eGFR > 60.00
[2024-05-27 15:00] VITALS: BP 155/77
[2024-05-27] MEDS: HEPARIN 5000 UNITS SC (20:24)
[2024-05-27] MEDS: TYLENOL 325 MG PO (21:34)
[2024-05-27 23:10] VITALS: BP 160/70
[2024-05-27] MEDS: ZOLOFT 50 MG PO (23:37)
[2024-05-27] MEDS: ATIVAN 0.5 MG PO (23:38)
[2024-05-27] MEDS: ZOLOFT 100 MG PO (23:38)
[2024-05-28 07:44] VITALS: BP 136/70
--- NOTE | 2024-05-28 07:52 | W.PN.HOSP.TC ---
Addendum entered and electronically signed by Andrzej Wong MD 05/28/24 22:54:
Attending Addendum-
I saw and evaluated the patient. I reviewed the resident�s note and agree with findings and plan as documented in the resident�s note. Sub: feels weak, no other complaints no further BRBPR Full 12 point ROS reviewed and negative except as documented
Exam: Vitals reviewed in chart GEN-NAD heart RRR lungs clear abd distended LE no edema
Obstructive painless jaundice secondary to pancreatic adenocarcinoma- NEW DX
-S/p ERCP with metal and plastic stents placed, EUS w/ Bx- 05/22
-FNA- suspicious for adenocarcinoma
-CEA 4.85
-CA19-9 716
-OP onc follow up for treatment options after rehab
Transaminitis from pancreatic mass/obstruction.
-Hold lipitor
- trending down
- repeat CMP in am
HypoKalemia
- resolved
- Replete prn
Dementia
- cont donepazil and memantine
HTN
- cont losartan
BRBPR overnight secondary to likely hemorrhoids
-Hemodynamically stable
-Hgb stable
-Was seen by colorectal surgery- no intervention
CECILIA resolved
DVT ppx cont LMWH
[facility] in am
Time spent coordinating care, review of plan of care with resident, personally reviewed records in EMR, med rec, consults, notes, labs, radiology, d/w nursing � 56 mins
Original Note:
Today's Communication/Plan
-
- waiting on SNF placement
- pt may need assistance with eating meals
Assessment / Plan
Assessment / Plan
Ms. Treva Castillo is a 78yo F pmh HTN, HLD, and dementia admitted for transaminitis, hyperbilirubinemia, and pancreatic head mass.
Obstructive jaundice, pancreatic head mass
- U/s: Intrahepatic and extrahepatic biliary ductal dilatation, along with gallbladder distention
- CT: Intrahepatic and extrahepatic biliary tract dilatation extending to the region of the head of the pancreas. Suspected soft tissue tissue lesion measuring at least 1.2-1.3 cm in the region of the head of the pancreas at least suspicious for
either pancreatic head mass or lesion at the ampulla of Vater. Malignancy is the diagnosis of exclusion. MRI may be helpful for more complete evaluation. Also consider endoscopic ultrasound.
- MRI: Suggests mass in pancreatic head. Enlarged lymph nodes in periportal and portacaval region - unclear if inflammatory or neoplastic. No metastasis
- Concerned for cancer due to loss of appetite, 30 lb weight loss, and (+) Courvoisier sign
- EUS/ERCP w stent placement on 05/22. One stent placed in ventral pancreatic duct, one in the common bile duct
- Biopsy results pending
- Clear liquid diet s/p procedure
- 379 lipase on 05/18, 799 on 05/24 s/p eus/ercp
- Fluids changed to LR
- CEA antigen 4.85ng/mL
- CA 19-9 antigen pending
- repeat lipase
- GI consulted & following
- PT/OT consulted
- Plan to f/u w outpt oncology and GI to review bx results
Loose stools, rectal bleeding
- not likely hematochezia as the blood is isolated to the diaper
- likely related to hemorrhoids or prolapse
- Episode of bowel movement w bright red blood. Likely due to hemorrhoids
- colorectal surgery consulted: likely due to chronic hemorrhoids, no treatment necessary at this time
- diarrhea has ceased
Transaminitis, Hyperbilirubinemia
- 230 AST on 05/18, peak 297, now 63
- 541 ALT on 05/18, peak 190, now 58
- 5.1 total bilirubin on 05/18, peak 6.2, now 1.9
- 541 alk phos on 05/18, peak 571, now 241
- overall improving s/p common bile duct stent and ventral pancreatic duct stent
- Hold lipitor
- Continue to monitor w CMP
Hypokalemia
- 3.4 K on 05/26
- repleted w KCl
- Resolved
CECILIA
- 1.3 Cr on 05/18, baseline 0.8, now 0.6
- Resolved with IV fluid hydration
- Likely secondary to poor PO intake
HTN, HLD
- Stable HTN
- Hold lipitor for transaminitis
Dementia
- continue home donepezil, memantine
Depression
- Continue home zoloft
DVT prophylaxis
- subq heparin
Code status: Full Code
Diet: low fat
Anticipated Discharge: Within 24 hours
Subjective/Interval History
-
Date of Service: May 28, 2024
Ms. Treva Castillo is a 78yo F h HTN, HLD, and dementia admitted for transaminitis, hyperbilirubinemia, and pancreatic head mass. No acute events overnight. Waiting on SNF placement.
Objective Data
-
Vital Signs:
Vital Signs
Temp Pulse Resp BP Pulse Ox
98.5 F 61 16 160/70 97
05/27/24 23:10 05/27/24 23:10 05/27/24 23:10 05/27/24 23:10 05/27/24 23:10
I&O
05/27/24 05/28/24 05/29/24
06:59 06:59 06:59
Intake Total 680 / 680 320 / 320
Output Total 350 / 350
Balance 680 / 680 -30 / -30
Review of Systems
-
Unable to obtain full review of systems at this time due to: Dementia
History Source: Patient
Constitutional: Denies Fever or Chills
Respiratory: Denies Cough or Trouble Breathing
Cardiac: Denies Chest Pain or Palpitations
Abdomen/GI: Denies Abdominal Pain, Nausea, Vomiting, Diarrhea or Constipated
Physical Exam
-
General: No Apparent Distress and Conversant
HEENT: Normocephalic and Atraumatic
Respiratory: Clear to Auscultation; Negative Wheezes, Rales or Rhonchi
Cardiac: Regular Rhythm and S1/S2; Negative Murmur, Rub or Gallop
GI: Soft, Nontender, Nondistended, Normal Bowel Sounds and No Hepatosplenomegaly
Musculoskeletal: No Cyanosis and No Edema
Skin: Warm and Dry
Neuro: Awake, Alert and Oriented (to self and place)
Psych: Calm
[2024-05-28] MEDS: HEPARIN 5000 UNITS SC ×2 (08:35→20:38)
[2024-05-28] MEDS: ARICEPT 10 MG PO (08:35)
[2024-05-28] MEDS: NAMENDA 10 MG PO ×2 (08:35→20:38)
--- NOTE | 2024-05-28 10:45 | CM ---
Addendum entered by Bina Montanez, [facility] 05/28/24 15:48:
# For report [phone]
Addendum entered by Bina Montanez, [facility] 05/28/24 15:42:
Received return call back from [facility] and a front office representative named, Machelle Pappas at [facility] who rendered authorization, [id number] 05/29-05/31 NRD 05/31 call [phone]
Addendum entered by Bina Montanez, [facility] 05/28/24 11:16:
Placed a call to [facility] ([facility]) and spoke with a front office representative named, Telma, who took some information and then requested clinicals be faxed to: [phone]
Reference# for Case [id number]
Faxed all requested clinical. Will await determination.
Original Note:
Received notification from YAEL who was on over the w/e that she was still advised by staff at [facility] that the [facility] has no bed availability, however there is availability at [facility]. Placed a call to Glenny in admissions at
[facility] who confirmed that she is holding a bed for patient. Spoke with patent's daughter who stated that if there are no beds in the foreseeable future, family would like for patient to transfer to [facility]. Placed a call to Karis in admissions at
[facility] who confirmed that there are no beds there.
[id number]arit[facility] [id number].
Plan: Case management will continue to follow and assist with discharge planning. Hopeful for auth to go to [facility].
[2024-05-28 11:36] VITALS: BP 146/69
[2024-05-28 15:01] VITALS: BP 159/82; PULSE 66
[2024-05-28 15:48] VITALS: BP 153/72
--- NOTE | 2024-05-28 16:15 | PTCARENOTE ---
patient disoriented to time, forgetful, not able to be reoriented, denies pain, appetite poor, Po's encouraged, bed alarm maintained, vss, will continue to monitor.
[2024-05-28 19:26] VITALS: BP 171/82
[2024-05-28] MEDS: ZOLOFT 50 MG PO (21:01)
[2024-05-28] MEDS: ZOLOFT 100 MG PO (21:01)
[2024-05-28 23:30] VITALS: BP 136/63
[2024-05-29 07:53] VITALS: BP 157/73
--- NOTE | 2024-05-29 07:59 | W.PN.HOSP.TC ---
Addendum entered and electronically signed by Andrzej Wong MD 05/29/24 23:25:
Attending Addendum-
I saw and evaluated the patient. I reviewed the resident�s note and agree with findings and plan as documented in the resident�s note. Sub: feels weak, wants to get rehab, 'im ready' no further BRBPR Full 12 point ROS reviewed and negative except as
documented Exam: Vitals reviewed in chart GEN-NAD heart RRR lungs clear abd distended LE no edema
#Obstructive painless jaundice secondary to pancreatic adenocarcinoma- NEW DX
-S/p ERCP with metal and plastic stents placed, EUS w/ Bx- 05/22
-FNA- suspicious for adenocarcinoma
-CEA 4.85
-CA19-9 716
-OP onc follow up for treatment options after rehab - d/w [facility] follow up set up d/w daughter
# Transaminitis from pancreatic mass/obstruction.
- trending down
- repeat CMP as OP
#HypoKalemia
- resolved
- Replete prn
#Dementia
- cont donepazil and memantine
#HTN
- cont losartan
#BRBPR secondary to likely hemorrhoids
-resolved
-Hemodynamically stable
-Hgb stable
-Was seen by colorectal surgery- no intervention
CECILIA resolved
DVT ppx cont LMWH
Dispo DC to [facility] today
Time spent coordinating care, DC planning, review of DC plan of care with resident, transition of care, review of records, med rec/scripts sent electronically, consults-to set up ONC follow up, notes, d/w consultants, nursing, family/daughter, and
CM�36 mins
Original Note:
Today's Communication/Plan
-
Assessment / Plan
Assessment / Plan
Ms. Treva Castillo is a 78yo F pmh HTN, HLD, and dementia admitted for transaminitis, hyperbilirubinemia, and pancreatic head mass.
Obstructive jaundice, pancreatic head mass
- U/s, CT, MRI: Suggests mass in pancreatic head. Enlarged lymph nodes in periportal and portacaval region - unclear if inflammatory or neoplastic. No evidence of metastasis at this time
- Concerned for cancer due to loss of appetite, 30 lb weight loss, and (+) Courvoisier sign
- EUS/ERCP w stent placement on 05/22. One stent placed in ventral pancreatic duct, one in the common bile duct
- Biopsy results pending
- CEA antigen 4.85ng/mL
- CA 19-9 antigen 716
- GI consulted
- PT/OT consulted
- Plan to f/u w outpt GI to review bx results
Weight loss, likely secondary to decreased intake, likely secondary to presumed pancreatic cancer
- On 03/10 admission weighed 72.1kg. On this admission, weighs 64.7kg. This is a 10% weight loss in 2 months, which is significant.
- pt has decreased appetite
- encourage po intake
- assistance with eating
Loose stools, rectal bleeding
- not likely hematochezia as the blood is isolated to the diaper
- hemodynamically stable
- colorectal surgery consulted: likely due to chronic hemorrhoids, no treatment necessary at this time
- diarrhea has ceased
Transaminitis, Hyperbilirubinemia
- overall improving s/p common bile duct stent and ventral pancreatic duct stent
- Hold lipitor
- Continue to monitor w CMP
Hypokalemia
- 3.4 K on 05/26
- repleted w KCl
- Resolved
CECILIA
- 1.3 Cr on 05/18, baseline 0.8, now 0.6
- Resolved with IV fluid hydration
- Likely secondary to poor PO intake
HTN, HLD
- Stable HTN
- Hold lipitor for transaminitis
Dementia
- continue home donepezil, memantine
Depression
- Continue home zoloft
DVT prophylaxis
- subq heparin
Code status: Full Code
Diet: low fat
Anticipated Discharge: Today
Subjective/Interval History
-
Date of Service: May 29, 2024
Ms. Treva Castillo is a 78yo F pmh HTN, HLD, and dementia admitted for transaminitis, hyperbilirubinemia, and presumed pancreatic cancer. No acute events overnight. Pt will be transferred to [facility] today.
Objective Data
-
Vital Signs:
Vital Signs
Temp Pulse Resp BP Pulse Ox
98.9 F 63 16 157/73 95
05/29/24 07:53 05/29/24 07:53 05/29/24 07:53 05/29/24 07:53 05/29/24 07:53
I&O
05/28/24 05/29/24 05/30/24
06:59 06:59 06:59
Intake Total 320 / 320 120 / 120
Output Total 350 / 350
Balance -30 / -30 120 / 120
Review of Systems
-
Unable to obtain full review of systems at this time due to: Dementia
History Source: Patient
Constitutional: Denies Sleep Disturbance
Respiratory: Reports No Symptoms
Cardiac: Reports No Symptoms
Abdomen/GI: Denies Abdominal Pain, Nausea, Vomiting, Diarrhea or Constipated
Genitourinary: Reports No Symptoms
Musculoskeletal: Reports No Symptoms
Physical Exam
-
General: Comfortable and Conversant
HEENT: Normocephalic and Atraumatic
Respiratory: Clear to Auscultation and Non Labored Respirations; Negative Wheezes, Rales or Rhonchi
Cardiac: Regular Rhythm and S1/S2; Negative Murmur, Rub or Gallop
GI: Soft, Nontender, Nondistended and Normal Bowel Sounds
Musculoskeletal: No Cyanosis and No Edema
Skin: Warm and Dry
Neuro: Awake
Psych: Calm
--- NOTE | 2024-05-29 08:09 | W.DCSUMMARY ---
Addendum entered and electronically signed by Andrzej Wong MD 05/29/24 23:27:
Read, reviewed, and agree. See same day progress note for additional details. D/W family re setting up appt with onc gaby. 'im not even sure we'll get treatment' [facility] made aware and will call family to set up appt. All parties in agreement.
Lauri Wong MD
Original Note:
Documented by User: Bri Lebron DO, Resident 05/29/24 15:12
Discharge Summary
Discharge Data
Date of Admission: 05/18/24
Date of Discharge: 05/29/24
-
Pending Results: No
Hospital Course
Ms. Treva Castillo is a 78yo F h HTN, HLD, and dementia admitted 05/18 for transaminitis, hyperbilirubinemia, and a pancreatic head mass. She came to the hospital because of transaminitis on outpatient labs and outpatient u/s was concerning for a
pancreatic head mass. Ultrasound, CT, MRI abdomen confirmed biliary tract dilation, a mass in the pancreatic sign, no evidence of metastasis, and enlarged lymph nodes in the periportal and portacaval region. EUS/ERCP w stent placement and biopsy
performed 05/22. Transient worsening transaminitis and worsening lipase. RUQ, epigastric tenderness after the procedure, over the general area of the common bile duct stent and ventral pancreatic duct stent. Biopsy results are pending. Developed
loose stools s/p EUS/ERCP, since resolved. Transaminitis improved. Pt tolerating PO intake. No diarrhea. Pt is hemodynamically stable and afebrile. Pt will be transferred to [facility] for SNF.
Biopsy results are suspicious for adenocarcinoma. Pt will need to follow up with [facility] and with Dr. Barrera.
In-house PT recommends further training at a skilled rehab placement for strengthening, balance, endurance training, and walker training.
Discharge Plan
-
Patient Disposition: Fpc/SNF
Discharge Diagnosis/Procedures: Transaminitis, Hyperbilirubinemia, Obstructive Jaundice, Pancreatic Mass
Condition: Fair
Diet: Low Fat
Activity: With Walker
Instructions: Pancreatic Cancer (DC), Biliary Stent Placement, How to use a walker
Referrals:
[facility] [Provider Group]
Rey Quezada MD [Family Provider] -
Jean-Pierre Barrera MD [Active] - None (F/u in 4 months, per Dr. Barrera's recommendation)
Additional Discharge Medication Instructions: Please follow up with Dr. Jean-Pierre Barrera in four months for the results of your biopsy.
His office phone number is . His office is located at
[address]
[place] [address]
Please return to the hospital if you experience new or worsening symptoms. This includes fever, chills, bloody diarrhea, intractable vomiting.
Prescriptions:
Continued
atorvastatin 20 mg Tablet
20 mg PO DAILY
donepezil 10 mg Tablet
10 mg PO DAILY
sertraline 100 mg Tablet
100 mg PO HS
Rx Instructions:
take with 50mg for total of 150mg
therapeutic multivitamin Tablet
1 tab PO DAILY
calcium carbonate 500 mg calcium (1,250 mg) Tablet
500 mg PO DAILY
losartan 100 mg Tablet
100 mg PO HS
sertraline 50 mg Tablet
50 mg PO HS
Rx Instructions:
take with 100mg for total of 150mg
memantine 10 mg Tablet
10 mg PO BID
lorazepam 0.5 mg Tablet
0.5 mg PO HS PRN (Reason: sleep)
Discharge Orders:
Discharge Patient (As Directed); Ordered 05/29/24
Ordered By: Bri Lebron
Discharge Date and Time
Discharge Date/Time: 05/29/24 16:48
Print Language: GREENLANDIC

Documented by User: Andrzej Wong MD 05/29/24 23:22
Discharge Summary
Discharge Data
Date of Admission: 05/18/24
Date of Discharge: 05/29/24
Discharge Plan
-
Patient Disposition: Fpc/SNF
Discharge Diagnosis/Procedures: Transaminitis, Hyperbilirubinemia, Obstructive Jaundice, Pancreatic Mass
Condition: Fair
Diet: Low Fat
Activity: With Walker
Instructions: Pancreatic Cancer (DC), Biliary Stent Placement, How to use a walker
Referrals:
[facility] [Provider Group]
Rey Quezada MD [Family Provider] -
Jean-Pierre Barrera MD [Active] - None (F/u in 4 months, per Dr. Barrera's recommendation)
Additional Discharge Medication Instructions: Please follow up with Dr. Jean-Pierre Barrera in four months for the results of your biopsy.
His office phone number is . His office is located at
[address] [place] [address]
[facility] [address]
[place] [address]
Please return to the hospital if you experience new or worsening symptoms. This includes fever, chills, bloody diarrhea, intractable vomiting.
Prescriptions:
Continued
atorvastatin 20 mg Tablet
20 mg PO DAILY
donepezil 10 mg Tablet
10 mg PO DAILY
sertraline 100 mg Tablet
100 mg PO HS
Rx Instructions:
take with 50mg for total of 150mg
therapeutic multivitamin Tablet
1 tab PO DAILY
calcium carbonate 500 mg calcium (1,250 mg) Tablet
500 mg PO DAILY
losartan 100 mg Tablet
100 mg PO HS
sertraline 50 mg Tablet
50 mg PO HS
Rx Instructions:
take with 100mg for total of 150mg
memantine 10 mg Tablet
10 mg PO BID
lorazepam 0.5 mg Tablet
0.5 mg PO HS PRN (Reason: sleep)
Discharge Orders:
Discharge Patient (As Directed); Ordered 05/29/24
Ordered By: Bri Lebron
Discharge Date and Time
Discharge Date/Time: 05/29/24 16:48
Print Language: GREENLANDIC
[2024-05-29] MEDS: HEPARIN 5000 UNITS SC (10:12)
[2024-05-29] MEDS: NAMENDA 10 MG PO (10:12)
[2024-05-29] MEDS: ARICEPT 10 MG PO (10:12)
--- NOTE | 2024-05-29 13:23 | CM ---
Reviewed chart, spoke with resident who confirmed that patient is medically stable for discharge. Spoke with Alyse at [facility] to confirm bed availability. Alyse confirmed that she still has the bed. # for report and fax in previous CM note.
Completed medical necessity and transfer sheet for [employer] to arrange for ambulance transport.
Met with patient, spouse and her daughter. They were all in agreement for d/c today. IMM signed and reviewed.
Plan: Case management will continue to follow and assist with discharge planning. [facility] today.
[2024-05-29 15:15] VITALS: BP 135/76
== END 2024-05-29 16:48 | DRG 438 ==
LOC: 3 WEST ACU 14:46
PROVIDERS: Hospitalist; Internal Medicine Gastroenterology; Nurse Practitioner Adult Health; Nurse Practitioner Gerontology; Physician Assistant; Registered Nurse; ADMITTING PHYSICIAN Hospitalist; ATTENDING PHYSICIAN Family Medicine; CONSULT PHYSICIAN Internal Medicine Gastroenterology; CONSULT PHYSICIAN Surgery; EMERGENCY PHYSICIAN Emergency Medicine; FAMILY PHYSICIAN Family Medicine
PROC: 0F798DZ Dilation of Common Bile Duct with Intraluminal Device, Via Natural or Artificial Opening Endoscopic (ICD-10-PCS; 2024-05-22)
PROC: 0F7D8DZ Dilation of Pancreatic Duct with Intraluminal Device, Via Natural or Artificial Opening Endoscopic (ICD-10-PCS; 2024-05-22)
PROC: 0DB98ZX Excision of Duodenum, Via Natural or Artificial Opening Endoscopic, Diagnostic (ICD-10-PCS; 2024-05-22)
DX: K86.89 Other specified diseases of pancreas (principal); K83.1 Obstruction of bile duct; N17.9 Acute kidney failure, unspecified; K85.80 Other acute pancreatitis without necrosis or infection; E78.5 Hyperlipidemia, unspecified; I10 Essential (primary) hypertension; F03.90 Unspecified dementia, unspecified severity, without behavioral disturbance, psychotic disturbance, mood disturbance, and anxiety; E80.6 Other disorders of bilirubin metabolism; T81.9XXA Unspecified complication of procedure, initial encounter; Y69 Unspecified misadventure during surgical and medical care
CPT/HCPCS: 88172; 88173; 88305; 74178; 74183; 74330; 76000; 80053; 82248; 82378; 82962; 83690; 85014; 85018; 85025; 85027; 85610; 85730; 86301; 87070; 87502; 88112; 93005; 97116; 97163; 99284; A9575; C1726; C1769; C1874; C2617; Q9967